=== PATIENT | female | born 1970 | race Caucasian/White ===

== ENCOUNTER 2023-05-12 11:01 | Outpatient (RCR) | payer OTHER, SELFPAY | END 2023-05-12 23:59 | disposition home or self-care (01) | LOC: RPT 11:01 | PROVIDERS: ATTENDING PHYSICIAN Student in an Organized Health Care Education/Training Program; FAMILY PHYSICIAN Physician Assistant Medical | DX: Z47.1 Aftercare following joint replacement surgery (principal); Z96.651 Presence of right artificial knee joint; M17.11 Unilateral primary osteoarthritis, right knee; Z73.6 Limitation of activities due to disability | CPT/HCPCS: 97010; 97110; 97112; 97116; 97162; 97530 ==

== ENCOUNTER 2023-06-08 10:07 | Outpatient (RCR) | payer OTHER, SELFPAY | END 2023-06-08 23:59 | disposition home or self-care (01) | LOC: RPT 10:07 | PROVIDERS: ATTENDING PHYSICIAN Student in an Organized Health Care Education/Training Program; FAMILY PHYSICIAN Physician Assistant Medical | DX: Z47.1 Aftercare following joint replacement surgery (principal); M17.11 Unilateral primary osteoarthritis, right knee; Z73.6 Limitation of activities due to disability; R26.89 Other abnormalities of gait and mobility; Z96.651 Presence of right artificial knee joint | CPT/HCPCS: 97010; 97110; 97116; 97140; 97530 ==

== ENCOUNTER 2023-06-30 15:00 | Outpatient (RCR) | payer OTHER, SELFPAY | END 2023-07-03 07:31 | disposition home or self-care (01) | LOC: RPT 15:00 | PROVIDERS: ATTENDING PHYSICIAN Student in an Organized Health Care Education/Training Program; FAMILY PHYSICIAN Physician Assistant Medical | DX: Z47.1 Aftercare following joint replacement surgery (principal); M17.11 Unilateral primary osteoarthritis, right knee; Z73.6 Limitation of activities due to disability; R26.89 Other abnormalities of gait and mobility; Z96.651 Presence of right artificial knee joint | CPT/HCPCS: 97010; 97110; 97112; 97530 ==

== ENCOUNTER 2024-07-06 15:39 | Inpatient (IN) | payer OTHER, SELFPAY ==
[2024-07-06] VITALS (49 sets, daily range): BP systolic 82–174; BP diastolic 40–93; BMI 31.8; BMI 29.8
--- NOTE | 2024-07-06 12:08 | ED.GENMED ---
History of Present Illness
General
Chief Complaint: Back Pain
Time Seen by Provider: 07/06/24 12:08
History of Present Illness
History of Present Illness:
TIME OF INITIAL ENCOUNTER: 12:30 PM
HPI: The patient has had left-sided back pain over the last couple days however at around 4:00 this morning, the pain dramatically worsened. She is now having shaking chills as well. This morning, she had some urinary hesitancy. She has no
history of kidney stones.
EXAM:
GENERAL: Appears rather uncomfortable with rigors
HEENT: Moist oral mucosa
CARDIOVASCULAR: No murmurs, normal heart rate, regular rhythm, No chest wall tenderness
PULMONARY: No respiratory distress, breath sounds are clear and equal
ABDOMEN: Soft with no peritoneal signs, mild left lower quadrant tenderness, mild left CVA tenderness
NEUROLOGIC: Excellent strength all extremities, no coordination deficits
PSYCHIATRIC: Appropriate mental status, normal insight and judgement
EXTREMITIES: Nontender, no edema, moves all extremities equally
SKIN: No rash, no lesions
NUMBER AND COMPLEXITY OF PROBLEMS ADDRESSED AT THE ENCOUNTER
� Chronic conditions affecting care: NIDDM, high blood pressure
� Acute Exacerbation and/or Progression of Chronic Illness: This is an acute problem
� Differential Diagnosis includes: Ureteral stone, infected stone, pyelonephritis
AMOUNT AND/OR COMPLEXITY OF DATA TO BE REVIEWED AND ANALYZED
� I performed an independent evaluation of and my interpretation is:
EKG:
CT: I personally reviewed CT imaging. There is a lot of inflammatory changes/stranding at the left kidney. There is a large proximal/mid left ureteral stone.
X-rays:
Laboratory Studies: White count is 12.1, hemoglobin normal, chemistries unremarkable however the glucose is 192
Other:
� Review of other/old records: I reviewed records, the patient had been receiving PT for joint replacement surgery in June 2023
� Clinical information was obtained by an independent historian: None needed
� Prescriptions/Medications Considered but not given:
� Further testing considered but not performed:
RISK OF COMPLICATIONS AND/OR MORBIDITY OR MORTALITY OF PATIENT MANAGEMENT
� Social determinants of health affecting care: Lives at home
� Discussion with other providers: I reviewed the images with Dr. Mercer and is planning to take the OR in the next hour.
� Escalation of care including admission/observation vs risk of discharge considered: Initially consider diagnosis of kidney stone but strongly�she was given IV Toradol as well as IV fluids.
ANY OTHER UPDATES:
1:10 PM: Patient now has shaking chills and reports no improvement after Toradol. Will cath for urine as she was unable to void and will try Dilaudid.
2:30 PM: The patient is tachycardic, I attempted to check another oral temperature however the thermometer would not register, she also desatted after Dilaudid was given and is now on nasal cannula oxygen. I have also added blood cultures and
lactic. I am now concerned for sepsis.
2:50 PM: Being admitted by Dr. Jaquez and planning OR within the next hour. I have also added gentamicin at Dr. Mercer's request.
Phy Exam
Physical Exam
Physical Exam:
See HPI
Course
Orders/Labs/Results
Orders:
Orders
07/06/24 12:13
CMP [Comprehensive Metabolic Panel] Urgent
Complete Blood Count/With Diff Urgent
07/06/24 12:22
0.9% Sodium Chloride 1000 ml [Nss] 1,000 ml IV BOLUS
Ketorolac [Toradol] 15 mg IV NOW STA
Ondansetron Injectable [Zofran] 4 mg IV NOW STA
07/06/24 13:12
CT Abd/pel Without Iv Or Oral Urgent
Comment:
Reason For Exam: L flank pain
07/06/24 13:15
HYDROmorphone [Dilaudid] 1 mg IV NOW STA
07/06/24 13:16
Straight cath- Treatment ONCE
07/06/24 13:24
Urinalysis Reflex To Culture Urgent
Date Specimen was Collected: 07/06/24
Time Specimen was Collected: 12:24
Urine Microscopic Reflex Cult Urgent
Urine Culture Urgent
CHAD Source: U
Specimen Description:
Date Specimen was Collected: 07/06/24
Time Specimen was Collected: 12:24
07/06/24 14:22
CefTRIAXone [Rocephin] 1,000 mg IV NOW STA
07/06/24 14:30
Lactic Acid Q4H
Comment: CANCEL 2nd LACTIC ACID IF 1st LACTIC ACID IS LESS THAN 2
Blood Culture Q30M
CHAD Source: Blood/Venous
Specimen Description:
07/06/24 14:42
Gentamicin 100 mg/50 ml [Gentamicin] 100 mg in 50 ml IV NOW
07/06/24 15:00
Blood Culture Q30M
CHAD Source: Blood/Venous
Specimen Description:
07/06/24 18:30
Lactic Acid Q4H
Comment: CANCEL 2nd LACTIC ACID IF 1st LACTIC ACID IS LESS THAN 2
Abnormal Lab Results
07/06/24 07/06/24
12:13 13:24
WBC 12.1 H 10^3/uL
(4.8-10.8)
MCH 26.8 L pg
(27.0-31.0)
MCHC 32.7 L g/dL
(33.0-37.0)
Absolute Neuts (auto) 11.5 H 10^3/uL
(1.4-6.5)
Absolute Lymphs (auto) 0.4 L 10^3/uL
(1.2-3.4)
Neutrophils % 95.4 H %
(42.2-75.2)
Lymphocytes % 3.4 L %
(20.5-51.1)
Monocytes % 0.6 L %
(1.7-9.3)
BUN 24 H mg/dl
(7-17)
Glucose 192 H mg/dl
(70-99)
Urine Ketones 3+ A
(Negative)
Ur Occult Blood Reflex 3+ A
(Negative)
Leukocyte Esterase Rfl 2+ A
(Negative)
Urine RBC 7-10 A /HPF
(0-2)
Urine WBC (Reflex) 40-50 A /HPF
(0-5)
Urine Bacteria (Reflex) Few A
(Negative)
Urine Glucose 4+ A
(Negative)
Urine Albumin (Reflex) 1+ A
(Neg - Trace)
07/06/24 12:13
07/06/24 12:13
Vital Signs
Initial and Last Documented VS:
Initial Vital Signs
Temp Pulse Resp BP Pulse Ox
36.6 C 84 18 114/70 98
07/06/24 11:58 07/06/24 11:58 07/06/24 11:58 07/06/24 11:58 07/06/24 11:58
Last Documented Vital Signs
Temp Pulse Resp BP Pulse Ox
37.2 C 122 34 124/80 97
07/06/24 14:40 07/06/24 14:00 07/06/24 14:00 07/06/24 14:00 07/06/24 13:46
*Critical Care Note
Total Time (30-74mins, 75-104mins- exclusive of procedures): Not Applicable
ED Attending Note
-
Portions of this chart may have been created with voice recognition software.� Occasional wrong word or��sound alike� substitutions may have occurred due to the inherent limitations of voice recognition software.
Discharge Plan
Departure
Patient Disposition: Admit
Date of Disposition: 07/06/24
Time of Disposition: 14:44
Presentation/result/management discussed w/ accepting MD/DO: Hospitalist
Discharge Problem:
Sepsis, Left ureteral calculus
Referrals:
Leslye Lynn PA-C [Family Provider] -
Interventions
Interventions:
*Risk Screen - Suicide Last Done: 07/06/24 11:58
*General Assessment Last Done: 07/06/24 11:58
*Neglect/Abuse Screening Last Done: 07/06/24 11:58
ED- Fall Risk Assessment Last Done: 07/06/24 12:11
*ED COVID-19 Vaccine History Last Done: 07/06/24 12:10
ED-Musculoskeletal Assessment Last Done: 07/06/24 12:11
Discharge Date and Time
Print Language: BOLIVIAN
[2024-07-06 12:22] LABS: % Basophils 0.2 % (0-2); % Eosinophils 0.1 % (0-6); % Immature Granulocytes 0.3 % (0-0.5); % Lymphocytes 3.4 % (20.5-51.1); % Monocytes 0.6 % (1.7-9.3); % Neutrophils 95.4 % (42.2-75.2); Absolute Lymphocytes 0.4 10^3/uL (1.2-3.4); Absolute Monocytes 0.1 10^3/uL (0.1-0.6); Absolute Neutrophils 11.5 10^3/uL (1.4-6.5); Hematocrit 41.9 % (37.0-47.0); Hemoglobin 13.7 g/dL (12.0-16.0); Mean Corp Hgb Conc. 32.7 g/dL (33.0-37.0); Mean Corpuscular Hgb 26.8 pg (27.0-31.0); Mean Corpuscular Volume 81.8 fL (81.0-99.0); Mean Platelet Volume 9.7 fL (7.4-10.4); Nucleated Red Blood Cells % 0 %; Platelet Count 228 10^3/uL (130-400); Red Blood Cell Count 5.12 10^6/uL (4.20-5.40); Red Cell Dist. Width 12.9 % (11.5-14.5); White Blood Cell Count 12.1 10^3/uL (4.8-10.8)
[2024-07-06] MEDS: NSS 1000 IV ×4 (12:26→23:32)
[2024-07-06] MEDS: TORADOL 15 MG IV (12:27)
[2024-07-06] MEDS: ZOFRAN 4 MG IV (12:28)
[2024-07-06 12:47] LABS: ALT (SGPT) 23 U/L (0-35); AST (SGOT) 26 U/L (14-36); Albumin 4.9 g/dl (3.5-5.0); Alkaline Phosphatase 122 U/L (38-126); Blood Urea Nitrogen 24 mg/dl (7-17); Calcium 9.9 mg/dl (8.4-10.2); Carbon Dioxide 23 mmol/L (22-30); Chloride 103 mmol/L (98-107); Estimated Creatinine Clearance 80 ml/min; Glucose 192 mg/dl (70-99); Potassium 4.4 mmol/L (3.5-5.1); Sodium 139 mmol/L (135-145); Total Bilirubin 1.3 mg/dl (0.2-1.3); Total Protein 7.4 g/dl (6.3-8.2); eGFR > 60.00
[2024-07-06] MEDS: DILAUDID 1 MG IV (13:17)
[2024-07-06 13:40] LABS: Urine Albumin 1+ (Neg - Trace); Urine Bilirubin Negative (Negative); Urine Character Clear (Clear); Urine Color Yellow; Urine Glucose 4+ (Negative); Urine Ketone 3+ (Negative); Urine Leukocyte 2+ (Negative); Urine Nitrite Negative (Negative); Urine Occult Blood 3+ (Negative); Urine Specific Gravity 1.015 (<1.030); Urine Urobilinogen Negative (Neg - 1+)
[2024-07-06 14:03] LABS: Urine Mucus Few
[2024-07-06 14:04] LABS: Urine Bacteria Few (Negative); Urine White Cell 40-50 /HPF (0-5)
[2024-07-06] MEDS: GENTAMICIN 50 IV (14:59)
[2024-07-06] MEDS: ROCEPHIN 1000 MG IV (14:59)
--- NOTE | 2024-07-06 15:00 | CHAP ---
Fr. Humphrey Rodgers of [facility] in [place] anointed Frank and gave her the Last [place] at her request. Exact time uncertain.
--- NOTE | 2024-07-06 15:03 | ED.GENMED ---
History of Present Illness
General
Chief Complaint: Back Pain
Time Seen by Provider: 07/06/24 12:08
Course
Orders/Labs/Results
Orders:
Orders
07/06/24 12:13
CMP [Comprehensive Metabolic Panel] Urgent
Complete Blood Count/With Diff Urgent
07/06/24 12:22
0.9% Sodium Chloride 1000 ml [Nss] 1,000 ml IV BOLUS
Ketorolac [Toradol] 15 mg IV NOW STA
Ondansetron Injectable [Zofran] 4 mg IV NOW STA
07/06/24 13:12
CT Abd/pel Without Iv Or Oral Urgent
Comment:
Reason For Exam: L flank pain
07/06/24 13:15
HYDROmorphone [Dilaudid] 1 mg IV NOW STA
07/06/24 13:16
Straight cath- Treatment ONCE
07/06/24 13:24
Urinalysis Reflex To Culture Urgent
Date Specimen was Collected: 07/06/24
Time Specimen was Collected: 12:24
Urine Microscopic Reflex Cult Urgent
Urine Culture Urgent
CHAD Source: U
Specimen Description:
Date Specimen was Collected: 07/06/24
Time Specimen was Collected: 12:24
07/06/24 14:22
CefTRIAXone [Rocephin] 1,000 mg IV NOW STA
07/06/24 14:30
Lactic Acid Q4H
Comment: CANCEL 2nd LACTIC ACID IF 1st LACTIC ACID IS LESS THAN 2
Blood Culture Q30M
CHAD Source: Blood/Venous
Specimen Description:
07/06/24 14:42
Gentamicin 100 mg/50 ml [Gentamicin] 100 mg in 50 ml IV NOW
07/06/24 14:56
Fentanyl Citrate/Pf [Sublimaze] 25 mcg IV PACU-Q5MPRN PRN
Fentanyl Citrate/Pf [Sublimaze] 50 mcg IV PACU-Q5MPRN PRN
Meperidine [Demerol] 12.5 mg IV PACU-Q5MPRN PRN
Ondansetron Injectable [Zofran] 4 mg IV PACU-ONCEPRN PRN
Prochlorperazine [Compazine] 5 mg IV PACU-ONCEPRN PRN
Notify MD As Directed
Notify physician if: for SDS patients with known or suspected sleep obstructive sleep apnea, monitor in the
PACU.
Notify MD for any apneic/desaturation episodes
O2 Therapy [RESP] Urgent
Titrate/Wean O2 to maintain O2 sat greater than (%): 92
Special Instructions: -Provide supplemental oxygen to achieve O2 sat of 92% or greater.
-After 15 min, may wean O2 and discontinue if patient is able to maintain O2 sat of 92%
or greater during recovery period.
If patient is a discharge home, without oxygen therapy, notify anestheiologist if
unable to maintain O2 SAT of 92% or greater on room air for MD clearance.
07/06/24 14:57
Dextrose 50%-Water [Dextrose 50% Syringe] 12.5 grams IV PROCEDURE-PRN PRN
Insulin Aspart [NOVOLOG vial] See Protocol SC PROCEDURE- Q2H PRN PRN
Bedside Glucose Monitoring As Directed
Frequency: Q2H
Additional Instructions:: UNTIL PATIENT LEAVES PROCEDURE AREA
07/06/24 15:00
Blood Culture Q30M
CHAD Source: Blood/Venous
Specimen Description:
Normosol (Mult Electrolytes) [Normosol-R/Plasmalyte-A] 1,000 ml IV PER PROTOCOL
07/06/24 18:30
Lactic Acid Q4H
Comment: CANCEL 2nd LACTIC ACID IF 1st LACTIC ACID IS LESS THAN 2
Abnormal Lab Results
07/06/24 07/06/24
12:13 13:24
WBC 12.1 H 10^3/uL
(4.8-10.8)
MCH 26.8 L pg
(27.0-31.0)
MCHC 32.7 L g/dL
(33.0-37.0)
Absolute Neuts (auto) 11.5 H 10^3/uL
(1.4-6.5)
Absolute Lymphs (auto) 0.4 L 10^3/uL
(1.2-3.4)
Neutrophils % 95.4 H %
(42.2-75.2)
Lymphocytes % 3.4 L %
(20.5-51.1)
Monocytes % 0.6 L %
(1.7-9.3)
BUN 24 H mg/dl
(7-17)
Glucose 192 H mg/dl
(70-99)
Urine Ketones 3+ A
(Negative)
Ur Occult Blood Reflex 3+ A
(Negative)
Leukocyte Esterase Rfl 2+ A
(Negative)
Urine RBC 7-10 A /HPF
(0-2)
Urine WBC (Reflex) 40-50 A /HPF
(0-5)
Urine Bacteria (Reflex) Few A
(Negative)
Urine Glucose 4+ A
(Negative)
Urine Albumin (Reflex) 1+ A
(Neg - Trace)
07/06/24 12:13
07/06/24 12:13
Vital Signs
Initial and Last Documented VS:
Initial Vital Signs
Temp Pulse Resp BP Pulse Ox
36.6 C 84 18 114/70 98
07/06/24 11:58 07/06/24 11:58 07/06/24 11:58 07/06/24 11:58 07/06/24 11:58
Last Documented Vital Signs
Temp Pulse Resp BP Pulse Ox
37.2 C 122 34 124/80 97
07/06/24 14:40 07/06/24 14:00 07/06/24 14:00 07/06/24 14:00 07/06/24 13:46
ED Attending Note
-
Portions of this chart may have been created with voice recognition software.� Occasional wrong word or��sound alike� substitutions may have occurred due to the inherent limitations of voice recognition software.
Discharge Plan
Departure
Patient Disposition: Admit
Date of Disposition: 07/06/24
Time of Disposition: 14:44
Presentation/result/management discussed w/ accepting MD/DO: Hospitalist
Discharge Problem:
Sepsis, Left ureteral calculus
Referrals:
Leslye Lynn PA-C [Family Provider] -
Interventions
Interventions:
*Risk Screen - Suicide Last Done: 07/06/24 11:58
*General Assessment Last Done: 07/06/24 11:58
*Neglect/Abuse Screening Last Done: 07/06/24 11:58
ED- Fall Risk Assessment Last Done: 07/06/24 12:11
*ED COVID-19 Vaccine History Last Done: 07/06/24 12:10
ED-Musculoskeletal Assessment Last Done: 07/06/24 12:11
Discharge Date and Time
Print Language: AFGHAN
--- NOTE | 2024-07-06 15:04 | W.PN.UPDATE ---
Update Note
Progress Note Update
This is an addendum to the H&P written by Faby Mccann on 07/06/2024.� Patient seen and examined independently with [employer].
54-year-old female past medical history of diabetes, hypertension, hypercholesteremia, presenting with left-sided flank pain for the past few days associated with chills, nausea and vomiting.� No urinary symptoms.
Patient tachycardic with leukocytosis.
Labs otherwise unremarkable.� Urinalysis shows 40-50 white cells in the urine.
CT abdomen pelvis shows severe acute obstructive uropathy of the left kidney with 1 cm obstructing calculus in the left mid ureter, severe left perirenal edema/inflammation, moderate urothelial thickening and mild air in the left renal pelvis
consistent with severe acute left pyelonephritis and acute emphysematous pyelitis.
Patient clinically septic.� N.p.o., IV fluids, urine culture, blood cultures.� IV fluids.
Ceftriaxone and gentamicin given.� Continue ceftriaxone.� Urology consulted for urgent OR intervention.� Hold diabetic medications and lisinopril.�
--- NOTE | 2024-07-06 15:10 | HPS.HSE ---
Family Physician
-
Family Physician: Leslye Lynn
Chief Complaint
-
left back and flank pain
History of Present Illness
Patient is a 54-year-old female with past medical history significant for NIDDM, hypertension, and hyperlipidemia who presented to [facility] ED for evaluation of left back and left flank pain. Patient reports she started with back pain on
left side about 4 days ago, pain was tolerable and intermittent. She then was woken from her sleep last night in severe back pain and now radiated to left flank. Patient attempted to deal with pain throughout this morning and was unsuccessful so
came for evaluation. She does associate severe pain today with chills, unknown if had fever, nausea and vomiting. Patient reports increased frequency but no other urinary symptoms. She denies any dizziness, cough, shortness of breath, chest pain,
constipation or diarrhea.
Medical History
Past Medical History
Past Medical History: Reports Other
Additional Past Medical History:
NIDDM
benign hypertension
hyperlipidemia
Past Surgical History: Reports Other
Additional Past Surgical History:
right total knee
Social History
Tobacco: Non-smoker
Alcohol: None
Drug: None
Personal:
Living: With Family
Family History
Family History: Not pertinent
Allergies / Home Medications
Allergies reflects when Allergies were last updated in [employer].
Home Medications with original date entered in [employer]
Allergy/Medication List:
Allergies
Allergy/AdvReac Type Severity Reaction Status Date / Time
codeine Allergy Intermediate Vomiting Verified 07/06/24 11:58
Home Medications
empagliflozin 10 mg tablet (Jardiance) 10 mg PO DAILY 07/06/24
lisinopril 2.5 mg tablet 2.5 mg PO DAILY 07/06/24
metformin 500 mg tablet 1,000 mg PO BID 07/06/24
rosuvastatin 5 mg tablet 5 mg PO QPM 07/06/24
Review of Systems
-
History Source: Patient
Constitutional: Reports Chills
EENT: Reports No Symptoms
Respiratory: Reports No Symptoms
Cardiac: Reports No Symptoms
Abdomen/GI: Reports Abdominal Pain, Nausea and Vomiting
: Reports Frequency
Musculoskeletal: Reports Other (left back and left flank pain )
Skin: Reports No Symptoms
Neurological: Reports No Symptoms
Endocrine: Reports No Symptoms
Hematologic/Lymphatic: Reports No Symptoms
Psych: Reports No Symptoms
Physical Exam
Vital Signs
Vital Signs
Temp Pulse Resp BP Pulse Ox
99.0 F 122 34 124/80 97
07/06/24 14:40 07/06/24 14:00 07/06/24 14:00 07/06/24 14:00 07/06/24 13:46
Physical Exam
General: Well Developed, Well Nourished, No Apparent Distress, Conversant and Pain
HEENT: NormoCephalic, Moist mucous membranes, Atraumatic, [place] Conjunctivae, Nose Appears Normal and Ears Appear Normal
Respiratory: Clear and Non Labored Respirations
Cardiac: S1/S2, Regular Rhythm and Tachycardia; No Murmur, Rub or Gallop
Breast: Deferred by me
GI: Soft, Non Distended, Normal Bowel Sounds and Tender (left flank); No Organomegaly
Rectal: Deferred by Provider
Genito-urinary: Costovertebral angle tend
Musculoskeletal: No Clubbing, No Cyanosis and No Edema
Skin: Warm and IV/Catheter Site; No Rash
Neuro: Awake, Alert, AO x 3 and Nonfocal/grossly intact
Psych: Calm and Intact Judgment/Insight
Laboratory Results
-
07/06/24 12:13
07/06/24 12:13
Laboratory Results
Total Bilirubin 1.3 mg/dl (0.2-1.3) 07/06/24 12:13
AST 26 U/L (14-36) 07/06/24 12:13
ALT 23 U/L (0-35) 07/06/24 12:13
Alkaline Phosphatase 122 U/L (38-126) 07/06/24 12:13
Data Reviewed
-
CT Scan: Report Reviewed by me (Abd/Pelvis: 1. SEVERE ACUTE OBSTRUCTIVE UROPATHY of the LEFT KIDNEY with a 1.0 cm obstructing calculus in the left mid ureter. Severe left renal and perirenal edema/inflammation, moderate urothelial thickening, and
mild air in the left renal pelvis consistent with SEVERE ACUTE LEFT PYELONEPHRITIS )
Lab Data: Labs Reviewed by me (WBC 12.1)
Impression/Plan
-
IMPRESSION/PLAN:
#sepsis 2/2 Left ureteral calculus
WBC 12.1
UA: indicating UTI
Abd/Pelvis CT: 1. SEVERE ACUTE OBSTRUCTIVE UROPATHY of the LEFT KIDNEY with a 1.0 cm obstructing calculus in the left mid ureter. Severe left renal and perirenal edema/inflammation, moderate urothelial thickening, and
mild air in the left renal pelvis consistent with SEVERE ACUTE LEFT PYELONEPHRITIS and ACUTE EMPHYSEMATOUS PYELITIS.
2. Severe diffuse hepatic steatosis.
3. Mild hepatosplenomegaly.
4. Small hiatal hernia.
5. Mild diverticulosis in the sigmoid colon.
6. Grade 1 anterolisthesis of L4 on L5 secondary to severe facet joint arthrosis.
7. Severe asymmetric osteoarthritis in the left hip.
- Admit to IMU
- IV Rocephin
- supportive care (pain regimen, antiemetics, IVF, etc.)
- Consult Urology
- NPO - plan for OR
#NIDDM
- hold metformin and Jardiance
- AccuCheck AC & HS
- SSI
#benign hypertension
- hold lisinopril
#hyperlipidemia
- continue rosuvastatin
Code status: Full code
DVT prophylaxis: SCDs
--- NOTE | 2024-07-06 15:17 | CON.MD ---
Consultation - Medical
-
see dictated note
pt with no prior gu hx
presents with left flank pain and dysuria
has elevated wbc/tachy- + ua and ct with obstructing left ureteral stone and sig perinephric inflammation on left
spoke to pt and by phone
notified OR
rocephin and gent
for ureteral stent maury- then monitored bed
[2024-07-06 15:41] LABS: Lactic Acid 2.1 mmol/L (0.7-2.0)
--- NOTE | 2024-07-06 16:24 | W.IMMPOSTOP ---
Surgical Immed Post Op Note
-
Primary Surgeon:
te
Assisting Surgeon:
Pre-op Diagnosis:
left ureteral stone/uti/sepsis
Post-op Diagnosis:
same
Procedure Performed:
cysto/left ureteral stent
Anesthesia Type:
gen
Specimen / Cultures:
ucx
Estimated Blood Loss:
1cc
Complications:
none
Operative Findings:
stent placed
pus draining from kidney
to pacu- then IMU
[2024-07-06 16:28] LABS: Glucose - Point of Care 183 mg/dl (70-99)
[2024-07-06] MEDS: NOVOLOG vial 1 UNITS SC (16:32)
[2024-07-06 16:33] LABS: Urine Albumin 2+ (Neg - Trace); Urine Bilirubin Negative (Negative); Urine Character Clear (Clear); Urine Color Yellow; Urine Glucose 4+ (Negative); Urine Ketone 1+ (Negative); Urine Leukocyte 1+ (Negative); Urine Nitrite Negative (Negative); Urine Occult Blood 1+ (Negative); Urine Specific Gravity 1.015 (<1.030); Urine Urobilinogen Negative (Neg - 1+)
[2024-07-06 16:43] LABS: Urine Bacteria Few (Negative)
[2024-07-06] MEDS: NORMOSOL-R/PLASMALYTE-A 500 IV (17:00)
[2024-07-06] MEDS: NORMOSOL-R/PLASMALYTE-A 1000 IV (17:00)
[2024-07-06] MEDS: NEO-SYNEPHRINE 250 IV (17:30)
--- NOTE | 2024-07-06 18:46 | PTCARENOTE ---
Patient arrived from PACU at change of shift, s/p stent placement. Patient arrived with Phenylephrine infusing along with NSS due to hypotension in PACU. BP upon arrival is 94/64, sinus tach at 114. Patient oriented to room, placed on cardiac
monitor. Report given to Huyen HALLMAN , admission endorsed.
--- NOTE | 2024-07-06 18:49 | SUR.PHASEI ---
patient septic in pacu, with low BP - Dr Gaffney at bedside - IV fluids wide open and intermittent bolus of scott by REPAIR DEPARTMENT SUPERVISOR, continue fluids wide, arousable no pain. Feels ' terrible' Initial temp 102.7 [address] to time and place, tachycardia.
Continued IV bolu and Dr Mercer and Dr Jaquez updated. Scott started at low dose at 1733 as bolus fluid finished, continuous IV at 150/hr. Family updated. on discharge from pacu - scott at 40mcg/min, NS at 150/hr. tachycardia persists. BP
improving. lethargic but awake and alert. Family to visit briefly. Hand off at bedside. Pt moved to physical IMU bed.
[2024-07-06] MEDS: NOVOLOG FLEXPEN-LOW RESISTANCE SC (19:36)
[2024-07-06] MEDS: NORMOSOL-R/PLASMALYTE-A IV (19:37)
[2024-07-06] MEDS: CRESTOR 5 MG PO (20:37)
[2024-07-06] MEDS: TORADOL 10 MG IV (20:46)
[2024-07-06 20:55] LABS: Lactic Acid 4.1 mmol/L (0.7-2.0)
[2024-07-06 21:31] LABS: Lactic Acid 4.3 mmol/L (0.7-2.0)
[2024-07-06 21:40] LABS: Glucose - Point of Care 205 mg/dl (70-99)
--- NOTE | 2024-07-06 23:44 | PTCARENOTE ---
Rec'd pt as new admission at change of shift. Scott gtt infusing, new order obtained from PHIL Hull as previous order had been completed. Pt continues with tachycardia, BP remains under 90 systolic, but MAPs over 65. Pt denies symptoms of hypotension
at this time. C/o mild to moderate pain in L abdomen, treated with toradol per JUL. Lactic acid drawn as it had been overdue, resulted 4.1. Redrawn to verify, 4.3. PHIL Hull notified via TT. IVF remain at 150ml/hr per MD orders. Will continue to
titrate scott per protocol. Rios remains intact. 96% on 2L O2. Call arce within reach. Care ongoing.
[2024-07-07] VITALS (50 sets, daily range): BP systolic 79–125; BP diastolic 59–83
[2024-07-07] MEDS: TORADOL 10 MG IV ×4 (02:58→22:28)
[2024-07-07] MEDS: NSS 1000 IV ×2 (05:24→16:04)
[2024-07-07 06:05] LABS: Lactic Acid 1.7 mmol/L (0.7-2.0)
[2024-07-07 06:06] LABS: Hematocrit 32.5 % (37.0-47.0); Hemoglobin 10.9 g/dL (12.0-16.0); Mean Corp Hgb Conc. 33.5 g/dL (33.0-37.0); Mean Corpuscular Volume 80.6 fL (81.0-99.0); Mean Platelet Volume 10.7 fL (7.4-10.4); Platelet Count 123 10^3/uL (130-400); Red Blood Cell Count 4.03 10^6/uL (4.20-5.40); Red Cell Dist. Width 13.3 % (11.5-14.5); White Blood Cell Count 18.9 10^3/uL (4.8-10.8)
[2024-07-07 06:19] LABS: Blood Urea Nitrogen 30 mg/dl (7-17); Calcium 7.7 mg/dl (8.4-10.2); Carbon Dioxide 16 mmol/L (22-30); Chloride 110 mmol/L (98-107); Estimated Creatinine Clearance 69 ml/min; Glucose 152 mg/dl (70-99); Potassium 3.6 mmol/L (3.5-5.1); Sodium 136 mmol/L (135-145); eGFR > 60.00
[2024-07-07] MEDS: TYLENOL 650 MG PO ×3 (07:39→20:56)
[2024-07-07] MEDS: NOVOLOG FLEXPEN-LOW RESISTANCE SC ×2 (07:42→16:44)
[2024-07-07 07:53] LABS: Glucose - Point of Care 135 mg/dl (70-99)
--- NOTE | 2024-07-07 08:05 | W.PN.URO.CBU ---
Today's Communication / Plan
-
continue soriano and stent
IMU care
Assessment / Plan
-
stone
UTI
gram neg sepsis
s/p stent and soriano
continue medical support/antibx
await ucx
Diagnosis
-
Date of Service: July 07, 2024
-
Patient Diagnosis:
stone
UTI and sepsis
Post Op Day:
left ureteral stent 07/06
Subjective
-
pt with MORRIS/back pain- not feeling well- but expected given clinical scenario
soriano in- urine clear
blood cx + for gram neg rods
Objective
-
Vital Signs
Temp Pulse Resp BP Pulse Ox
97.7 F 91 28 94/66 96
07/07/24 03:00 07/07/24 07:30 07/07/24 07:30 07/07/24 07:30 07/07/24 07:53
Intake and Output
07/06/24 07/07/24 07/08/24
06:59 06:59 06:59
Intake Total 3058 / 3058
Output Total 900 / 900
Balance 2158 / 2158
Intake:
Oral fluids 100 / 100
IV fluids (Total) 2958 / 2958
stephanie gtt 8 / 8
normosol 1000 / 1000
ns 150 / 150
Output:
Urine, Soriano 275 / 275
Urine, Voided 625 / 625
Laboratory Results
07/07/24 05:43
07/07/24 05:43
Review of Systems
-
Constitutional: Fatigue
Respiratory: No Symptoms
Cardiac: No Symptoms
Abdomen/GI: Abdominal Pain
: Urgency (soriano)
Physical Exam
-
General - ill appearing, NAD
Abdomen - soft, some tenderness- no rebound
Genitalia - soriano place
--- NOTE | 2024-07-07 08:17 | W.PN.HOSP.TC ---
Addendum entered and electronically signed by Augustina Shepard MD 07/07/24 11:07:
BP 90/60 - will put Levophed on board if needed
Original Note:
Today's Communication/Plan
-
broaden antibiotics
lower IVF rate - if drinking well can stop later
appreciate Urology
Assessment / Plan
Assessment / Plan
Patient is a 54-year-old female with past medical history significant for NIDDM, hypertension, and hyperlipidemia who presented to [facility] ED for evaluation of left back and left flank pain found to have 1.0cm obstructing calculus
resulting in obstructive uropathy; pyelonephritis and acute emphysematous pyelitis s/p urgent placement ureteral stent.
Abdomen/Pelvis CT
IMPRESSION:
1. SEVERE ACUTE OBSTRUCTIVE UROPATHY of the LEFT KIDNEY with a 1.0 cm obstructing calculus in the left mid ureter. Severe left renal and perirenal edema/inflammation, moderate urothelial thickening, and mild air in the left renal pelvis consistent
with SEVERE ACUTE LEFT PYELONEPHRITIS and ACUTE EMPHYSEMATOUS PYELITIS.
2. Severe diffuse hepatic steatosis.
3. Mild hepatosplenomegaly.
4. Small hiatal hernia.
5. Mild diverticulosis in the sigmoid colon.
6. Grade 1 anterolisthesis of L4 on L5 secondary to severe facet joint arthrosis.
7. Severe asymmetric osteoarthritis in the left hip.
Sepsis 2/2 Obstructive Uropathy with left ureteral calculus and Pyelonephritis
Gram Negative Bacilli Bacteremia
Septic Shock
-s/p urgent cysto and left ureteral stent placement by Dr. Mercer
-patient required Phenylephrine post-op; quickly came off and BP/MAP stable
-s/p IV Ceftriaxone - will broaden antibiotics to IV Zosyn today while awaiting final cultures
-continue Rios catheter
-CLD per Urology
-IVF - lower rate
NIDDM
-patient is on Jardiance, Metformin at home, continue to hold
-ISS
HLD
-TAX ASSOCIATE ATTORNEY statin
Essential HTN
-hold TAX ASSOCIATE ATTORNEY Lisinopril
Anemia
-drop in Hg post IVF, suspect dilutional
-add on iron studies
-repeat at noon
non-gap metabolic Acidosis
Hyperchloremic Acidosis
-lower rate IVF
DVT PPx SCD
FULL CODE
Anticipated Discharge: > 48 hours
Subjective/Interval History
-
Date of Service: July 07, 2024
has mild headache
pain from stent
Objective Data
-
Labs:
Laboratory Results
07/07/24
05:43
WBC 18.9 H
Hgb 10.9 L D
Hct 32.5 L
Plt Count 123 L D
Sodium 136
Potassium 3.6
Chloride 110 H
Carbon Dioxide 16 L
BUN 30 H
Creatinine 1.0
Glucose 152 H
Calcium 7.7 L D
Vital Signs:
Vital Signs
Temp Pulse Resp BP Pulse Ox
97.7 F 91 28 94/66 96
07/07/24 03:00 07/07/24 07:30 07/07/24 07:30 07/07/24 07:30 07/07/24 07:53
I&O
07/06/24 07/07/24 07/08/24
06:59 06:59 06:59
Intake Total 3058 / 3058
Output Total 900 / 900
Balance 2158 / 2158
Review of Systems
-
History Source: Patient
All other systems: Reviewed and negative
Physical Exam
-
General: No Apparent Distress
HEENT: PERRLA
Respiratory: Clear to Auscultation; Negative Wheezes
Cardiac: Regular Rhythm and S1/S2
GI: Soft and Nontender
Genito-urinary: Rios
Musculoskeletal: No Edema
Skin: Warm and Dry; Negative Rash
Neuro: AO x 3
Psych: Calm
Data Reviewed
-
Diagnostic Radiology: Report Reviewed by me
Labs: Labs Reviewed by me
[2024-07-07 08:54] LABS: Iron < 20 ug/dl (37-170)
[2024-07-07 09:01] LABS: Total Iron Binding Capacity 236 ug/dl (265-497)
[2024-07-07 09:09] LABS: Glycohemoglobin (HgbA1c) 7.3 % (4.0-5.6)
[2024-07-07] MEDS: ZOSYN 50 IV ×3 (09:11→22:29)
[2024-07-07 09:37] LABS: Ferritin 69.7 ng/ml (11.1-264.0)
[2024-07-07] MEDS: LEVOPHED 250 IV (11:24)
[2024-07-07 12:17] LABS: Glucose - Point of Care 161 mg/dl (70-99)
[2024-07-07 12:33] LABS: Hemoglobin 10.4 g/dL (12.0-16.0)
[2024-07-07] MEDS: NOVOLOG FLEXPEN-LOW RESISTANCE 1 UNITS SC (12:49)
--- NOTE | 2024-07-07 13:28 | CM ---
Patient seen at bedside.
IA completed
Dx: Left ureteral calculus, sepsis
Patient lives with and children in a 2 story home, 2 steps to enter
PLOF: Independent, works, drives
Denies DME
[facility] in 2022 TKA, outpatient PT
PCP: Ailyn Lynn
Pharmacy: [address], [place]
PLAN: home, anticipate no needs
--- NOTE | 2024-07-07 16:32 | PTCARENOTE ---
Patient AOx3. Patient has flat affect. Patient on RA. Levo gtt initiated and weaned off per order for SBP >90. IVF running per order. NSR on monitor. 18 welsh soriano draining yellow urine with sediment. Patient tolerating clear liquid diet. OOB to
chair assist x1. Patient c/o headache. Medication provided per MAR. Patients family at bedside throughout shift. Call arce within reach, bed in lowest position, and bed of wheels locked.
[2024-07-07 16:40] LABS: Glucose - Point of Care 139 mg/dl (70-99)
[2024-07-07] MEDS: CRESTOR 5 MG PO (17:01)
[2024-07-07 22:36] LABS: Glucose - Point of Care 130 mg/dl (70-99)
[2024-07-08] VITALS (21 sets, daily range): BP systolic 104–150; BP diastolic 62–96
[2024-07-08] MEDS: TYLENOL 650 MG PO ×2 (02:49→16:25)
[2024-07-08] MEDS: ZOSYN 50 IV ×2 (04:35→10:20)
[2024-07-08 05:18] LABS: Blood Urea Nitrogen 28 mg/dl (7-17); Calcium 8.6 mg/dl (8.4-10.2); Carbon Dioxide 20 mmol/L (22-30); Chloride 110 mmol/L (98-107); Estimated Creatinine Clearance 63 ml/min; Glucose 115 mg/dl (70-99); Magnesium 1.7 mg/dl (1.6-2.3); Potassium 3.3 mmol/L (3.5-5.1); Sodium 137 mmol/L (135-145); eGFR > 60.00
--- NOTE | 2024-07-08 06:07 | W.PN.URO.CBU ---
Today's Communication / Plan
-
continue supportive medical care
Assessment / Plan
-
stone
UTI
gram neg sepsis
s/p stent and soriano
continue medical support/antibx
await ucx final report
advance diet and activity
soriano out today if patient UOOB
Diagnosis
-
Date of Service: July 08, 2024
-
Patient Diagnosis:
stone
UTI and sepsis
Post Op Day:
left ureteral stent 07/06
Subjective
-
pt stable in IMU
still feels very weak and fatigued
off pressors
urine clear
afebrile
cx's + for ecoli
Objective
-
Vital Signs
Temp Pulse Resp BP Pulse Ox
97.8 F 94 19 113/73 99
07/08/24 04:46 07/08/24 04:00 07/08/24 04:00 07/08/24 04:00 07/08/24 04:07
Intake and Output
07/06/24 07/07/24 07/08/24
06:59 06:59 06:59
Intake Total 3058 / 3058 2330 / 2330
Output Total 900 / 900 1800 / 1800
Balance 2158 / 2158 530 / 530
Intake:
Oral fluids 100 / 100 1440 / 1440
IV fluids (Total) 2958 / 2958 840 / 840
stephanie gtt 8 / 8
normosol 1000 / 1000
ns 150 / 150
IV piggybacks 50 / 50
Output:
Urine, Soriano 275 / 275 1800 / 1800
Urine, Voided 625 / 625
Laboratory Results
07/08/24 04:34
Review of Systems
-
Constitutional: Fatigue
Respiratory: No Symptoms
Cardiac: No Symptoms
Abdomen/GI: Abdominal Pain (improved)
Musculoskeletal: No Symptoms
Skin: No Symptoms
Neurological: Headache and Weakness
Physical Exam
-
General - no acute distress
Abdomen - soft, non-tender
Genitalia - soriano in place
[2024-07-08 06:09] LABS: Hematocrit 30.6 % (37.0-47.0); Hemoglobin 10.3 g/dL (12.0-16.0); Mean Corp Hgb Conc. 33.7 g/dL (33.0-37.0); Mean Corpuscular Hgb 27.6 pg (27.0-31.0); Mean Platelet Volume 11.1 fL (7.4-10.4); Platelet Count 116 10^3/uL (130-400); Red Blood Cell Count 3.73 10^6/uL (4.20-5.40); Red Cell Dist. Width 13.4 % (11.5-14.5); White Blood Cell Count 15.1 10^3/uL (4.8-10.8)
--- NOTE | 2024-07-08 07:40 | W.PN.HOSP.TC ---
Addendum entered and electronically signed by Ronnie Najera MD 07/08/24 16:19:
hold Lovenox
Rpt Hb
Black colored vomitus per nursing.
Addendum entered and electronically signed by Ronnie Najera MD 07/08/24 16:16:
I saw and evaluated the patient. I reviewed the resident�s note and agree with findings and plan as documented in the resident�s note except for changes in my documentation
Addendum entered and electronically signed by Ronnie Najera MD 07/08/24 16:00:
Seen earlier. Late documentation.
54-year-old female who presented to [facility] ED for evaluation of left back and left flank pain found to have 1.0cm obstructing calculus resulting in obstructive uropathy; pyelonephritis and acute emphysematous pyelitis s/p urgent
placement ureteral stent.
CT abdomen and pelvis-severe acute obstructive uropathy of the left kidney with 1 cm obstructing calculus in the left mid ureter. Severe left renal and perirenal edema/inflammation, moderate urothelial thickening and mild air in the left renal
pelvis consistent with severe acute left pyelonephritis and acute emphysematous pyelitis.
Severe diffuse hepatic steatosis, mild hepatosplenomegaly, small hiatal hernia, mild diverticulosis of the sigmoid colon, grade 1 anterolisthesis L4-L5, severe asymmetric osteoarthritis of the left hip
CVS: S1-S2 normal
Chest: CTA B/L
Abdomen: Soft, NT / Bowel sounds present
Extremities: No edema, normal pulses
DOUBLE CUTTER: Non focal exam
# Sepsis secondary to obstructive uropathy with left ureteral calculus and pyelonephritis / acute emphysematous pyelitis
E. coli bacteremia with septic shock
Status post urgent cystoscopy and left ureteral stent placement by Dr. Mercer
Wean pressors as tolerated
Lactic acidosis resolved
Continue with IV ceftriaxone
ID evaluation appreciated
On Rios catheter
IV fluids
White count coming down
# Hypokalemia-replace
# Acute kidney injury-IV fluids to be continued. Hold Toradol.
# Diabetes-hemoglobin A1c 7.3
Was on Jardiance and metformin at home-on hold
Accu-Cheks and sliding scale coverage
# Hypertension-hold lisinopril
# Hyperlipidemia-continue statin
# Anemia-severe iron deficiency-replace iron
# Thrombocytopenia
# Hyperchloremic metabolic acidosis
# DVT prophylaxis-Lovenox added
# Full code
Discussed with at bedside
Original Note:
Today's Communication/Plan
-
Narrow antibiotics to ceftriaxone
Gentle IVF
Monitor and replete electrolytes
Follow urine and blood cultures
Assessment / Plan
Assessment / Plan
Patient is a 54-year-old female with past medical history significant for NIDDM, hypertension, and hyperlipidemia who presented to [facility] ED for evaluation of left back and left flank pain found to have 1.0cm obstructing calculus
resulting in obstructive uropathy; pyelonephritis and acute emphysematous pyelitis s/p urgent placement ureteral stent.
Assessment/plan:
#Septic shock 2/2 complicated UTI with bacteremia
-From left ureteral obstructive uropathy with calculus and pyelonephritis.
-S/p uneventful cystoscopy with left ureteral stent 07/06 (Dr. Mercer).
-Narrow ABX to ceftriaxone per ID.
-Blood cultures x 2 and urine culture with E. coli, follow for sensitivity.
-Follow daily blood cultures x 2 until negative.
-Follow fever curve.
-Started Levophed for hypotension.
-Continue Rios catheter.
-Continue IV fluid.
-ID appreciated.
-Appreciate urology.
-Follow daily weights, I's and O's, BP.
#Hypokalemia
-Monitor and replete.
#Lactic acidosis
-Improved.
#Leukocytosis
-Improving on IV antibiotics.
-Monitor and follow fever curve.
#NIDDM
-Hold home Jardiance, metformin.
-Low ISS with Accu-Cheks.
#HLD
-Continue rosuvastatin.
#Essential HTN
-Hold lisinopril.
#Iron deficiency anemia
-Start iron supplementation.
-Follow CBC.
#Non-anion gap metabolic acidosis
-Hyperchloremic.
-Suspect due to lactic acidosis has resolved vs acute infection.
-Follow CBC.
DVT PPx-SCD
CODE STATUS: FULL CODE
Data:
Abdomen/Pelvis CT
IMPRESSION:
1. SEVERE ACUTE OBSTRUCTIVE UROPATHY of the LEFT KIDNEY with a 1.0 cm obstructing calculus in the left mid ureter. Severe left renal and perirenal edema/inflammation, moderate urothelial thickening, and mild air in the left renal pelvis consistent
with SEVERE ACUTE LEFT PYELONEPHRITIS and ACUTE EMPHYSEMATOUS PYELITIS.
2. Severe diffuse hepatic steatosis.
3. Mild hepatosplenomegaly.
4. Small hiatal hernia.
5. Mild diverticulosis in the sigmoid colon.
6. Grade 1 anterolisthesis of L4 on L5 secondary to severe facet joint arthrosis.
7. Severe asymmetric osteoarthritis in the left hip.
Anticipated Discharge: > 48 hours
Subjective/Interval History
-
Date of Service: July 08, 2024
Patient seen and examined. Reports fatigue, body aches and pains. Also reports some flank pains.
Denies chest pain and shortness of breath. Denies fever or chills.
Objective Data
-
Labs:
Laboratory Results
07/08/24
04:34
WBC 15.1 H
Hgb 10.3 L
Hct 30.6 L
Plt Count 116 L
Sodium 137
Potassium 3.3 L
Chloride 110 H
Carbon Dioxide 20 L
BUN 28 H
Creatinine 1.1 H
Glucose 115 H
Calcium 8.6
Vital Signs:
Vital Signs
Temp Pulse Resp BP Pulse Ox
98 F 93 20 110/72 99
07/08/24 07:15 07/08/24 06:00 07/08/24 06:00 07/08/24 06:00 07/08/24 04:07
I&O
07/07/24 07/08/24 07/09/24
06:59 06:59 06:59
Intake Total 3058 / 3058 2330 / 2330
Output Total 900 / 900 1800 / 1800
Balance 2158 / 2158 530 / 530
Review of Systems
-
History Source: Patient
All other systems: Not reviewed unless documented
Respiratory: Reports No Symptoms
Cardiac: Reports No Symptoms
Abdomen/GI: Reports Abdominal Pain; Denies Nausea or Vomiting
Genitourinary: Reports Flank Pain; Denies Dysuria or Frequency
Skin: Reports No Symptoms
Neuro: Reports No Symptoms
Physical Exam
-
General: No Apparent Distress and Comfortable
HEENT: PERRLA
Respiratory: Clear to Auscultation; Negative Wheezes
Cardiac: Regular Rhythm and S1/S2
GI: Soft and Nontender
Genito-urinary: Rios
Musculoskeletal: No Cyanosis and No Edema; Negative Clubbing
Skin: Warm and Dry; Negative Rash
Neuro: Awake and AO x 3
Psych: Calm
Data Reviewed
-
Diagnostic Radiology: Report Reviewed by me
Labs: Labs Reviewed by me and Discussed with Physician
Old Records: Reviewed
[2024-07-08 08:12] LABS: Band Neutrophils 8 % (0-3); Lymphocytes 6 % (20-51); Monocytes 1 % (2-9); Platelets Checked Yes; Segmented Neutrophils 85 % (42-75)
[2024-07-08 08:13] LABS: Normal RBC Morphology Yes; Total Cells Counted 100
[2024-07-08] MEDS: UROCIT-K 10 MEQ PO (08:15)
[2024-07-08] MEDS: Pyridium 100 MG PO ×3 (08:15→23:23)
[2024-07-08] MEDS: NSS 1000 IV ×2 (08:16→20:47)
[2024-07-08] MEDS: NOVOLOG FLEXPEN-LOW RESISTANCE SC ×3 (08:21→17:21)
[2024-07-08] MEDS: TORADOL 10 MG IV (08:24)
[2024-07-08 08:31] LABS: Glucose - Point of Care 112 mg/dl (70-99)
--- NOTE | 2024-07-08 09:43 | W.PN.UPDATE ---
Addendum entered and electronically signed by Ronnie Najera MD 07/09/24 13:59:
THis note is for 07/09/24
Original Note:
Update Note
Progress Note Update
Seen earlier. Late documentation.
I saw and evaluated the patient. I reviewed the resident�s note and agree with findings and plan as documented in the resident�s note except for changes in documentation.
54-year-old female who presented to [facility] ED for evaluation of left back and left flank pain found to have 1.0cm obstructing calculus resulting in obstructive uropathy; pyelonephritis and acute emphysematous pyelitis s/p urgent
placement ureteral stent.
CT abdomen and pelvis-severe acute obstructive uropathy of the left kidney with 1 cm obstructing calculus in the left mid ureter. Severe left renal and perirenal edema/inflammation, moderate urothelial thickening and mild air in the left renal
pelvis consistent with severe acute left pyelonephritis and acute emphysematous pyelitis.
Severe diffuse hepatic steatosis, mild hepatosplenomegaly, small hiatal hernia, mild diverticulosis of the sigmoid colon, grade 1 anterolisthesis L4-L5, severe asymmetric osteoarthritis of the left hip
CVS: S1-S2 normal
Chest: CTA B/L
Abdomen: mild diffuse epigastric discomfort. Bowel sounds present
Extremities: No edema, normal pulses
SENIOR UI DEVELOPER: Non focal exam
# Coffee-ground emesis with loose stools
Status post EGD 07/09/2024-normal esophagus, small hiatal hernia, oozing gastric ulcer with visible vessel treated with cautery, normal duodenum
Continue PPI
CLD today
GI eval appreciated.
# Sepsis secondary to obstructive uropathy with left ureteral calculus and pyelonephritis / acute emphysematous pyelitis
E. coli bacteremia with septic shock
Status post urgent cystoscopy and left ureteral stent placement by Dr. Mercer
Off pressors
Lactic acidosis resolved
Continue with IV ceftriaxone
Rios catheter out
White count coming down
# Hypokalemia-replaced
# Acute kidney injury-Resolved
# Diabetes-hemoglobin A1c 7.3
Was on Jardiance and metformin at home-on hold
Accu-Cheks and sliding scale coverage
# Hypertension-hold lisinopril
# Hyperlipidemia-continue statin
# Anemia-severe iron deficiency and also secondary to acute GI blood loss-replace iron IV
# Thrombocytopenia-Resolved
# Hyperchloremic metabolic acidosis
# DVT prophylaxis-Lovenox added
# Full code
Discussed with at bedside
D/W GI
D/W RN
--- NOTE | 2024-07-08 10:29 | CON.ID ---
Consultation
-
Date/Time Consultation Requested: 07/08/2024 0949
Date/Time Consultation Performed: 07/08/2024 1020
Requesting Provider: Dr. Najera
Performing Provider: Dr. Kimball
Reason for Consultation: Bacteremia
Chief Complaint / Past History
History of Present Illness
Rachel Henley is a 54-year-old female being evaluated at the request of Dr. Najera in regards to bacteremia. History is obtained from chart review, along with patient interview.
The patient has a significant past medical history of diabetes mellitus, along with HTN who presented to [facility] ER on 07/06/2024 after the development of several days of left-sided back discomfort. She reports that she has had
intermittent back pain for quite some time, ever since she underwent right knee replacement which 'straighten out her spine', and for several days she had been having that type of pain. On the day of presentation to the ER she noted that the pain
dramatically worsened and admitted to shaking chills, and urinary hesitancy. Additionally, she notes that she had nausea, along with several episodes of vomiting. ER workup revealed a leukocytosis. CT imaging of the abdomen and pelvis revealed
obstructive uropathy, and the patient was taken to the OR for stent placement. Cultures obtained at the time of admission are now positive for E. coli, and Infectious Diseases is asked to comment on further antimicrobial management.
Currently she feels quite fatigued, with generalized bodyaches and pains. She notes her back pain is become some abdominal pain. She denies any dysuria. She continues to have some flank pain. She has no prior history of nephrolithiasis. No
recent history of dysuria.
Past History
Additional Past Medical History:
NIDDM
HTN
Dyslipidemia
Additional Past Surgical History:
Right TKR
D&C
D&E
Allergy History:
codeine Allergy (Intermediate, Verified 07/06/24 11:58)
Vomiting
Medications Reviewed: Yes
Current Antibiotics:
Zosyn 3.375 g IV every 6 hours
Social History
Tobacco: Non-Smoker
Alcohol: None
Drug: None
Personal:
Living: With Family
Employment: Employed
Family History
Family History: Not Pertinent
Review of Systems
Vital Signs
Temp Pulse Resp BP Pulse Ox
98 F 71 23 110/81 96
07/08/24 07:15 07/08/24 08:00 07/08/24 08:00 07/08/24 08:00 07/08/24 08:00
Physical Exam
Physical Exam
Constitutional: No Acute Distress, Comfortable and Non-toxic
Eyes: No Conjunctival Hemorrhage and Sclera Anicteric
Oral: No Thrush and No Ulcers
Cardiovascular: Regular Rate and S1/S2; Negative Murmur or Rub
Pulmonary: Clear and Symmetric; Negative Wheezes, Rales or Rhonchi
Gastrointestinal: Soft, Tender, Non Distended and Normal Bowel Sounds
Genito-Urinary: CVA Tenderness (Left-sided)
Extremities: Negative Edema, Cyanosis or Erythema
Skin: Warm and Dry; Negative Rash or Jaundice
Neurological: Awake and Alert
Psychological: Calm
.
Lab / Diagnostic Study Results
07/08/24 04:34
07/08/24 04:34
Abs Immat Gran (auto) 0.0 10^3/uL (0-0.05) 07/06/24 12:13
Absolute Neuts (auto) 11.5 10^3/uL (1.4-6.5) H 07/06/24 12:13
Absolute Lymphs (auto) 0.4 10^3/uL (1.2-3.4) L 07/06/24 12:13
Absolute Monos (auto) 0.1 10^3/uL (0.1-0.6) 07/06/24 12:13
Absolute Basos (auto) 0.0 10^3/uL (0-0.2) 07/06/24 12:13
Total Counted 100 07/08/24 04:34
Immature Gran % 0.3 % (0-0.5) 07/06/24 12:13
Neutrophils % 95.4 % (42.2-75.2) H 07/06/24 12:13
Lymphocytes % 3.4 % (20.5-51.1) L 07/06/24 12:13
Monocytes % 0.6 % (1.7-9.3) L 07/06/24 12:13
Eosinophils % 0.1 % (0-6) 07/06/24 12:13
Basophils % 0.2 % (0-2) 07/06/24 12:13
Abs Neuts (Manual) 14.0 10^3/uL (1.4-6.5) H 07/08/24 04:34
Segmented Neutrophils 85 % (42-75) H 07/08/24 04:34
Band Neutrophils 8 % (0-3) H 07/08/24 04:34
Lymphocytes (Manual) 6 % (20-51) L 07/08/24 04:34
Lactic Acid 1.7 mmol/L (0.7-2.0) 07/07/24 05:43
Urine WBC 11-15 /HPF (0-5) A 07/06/24 16:20
Ur Squamous Epith Cells 6-10 /LPF (Few) 07/06/24 16:20
Microbiology Results
Micro:
07/06/24 13:24 Urine Culture - Final
Urine Escherichia coli
07/08/24 04:34 Blood Culture - Pending
Blood/Venous
07/07/24 12:18 Blood Culture - Pending
Blood/Venous
07/06/24 14:55 Blood Culture - Preliminary
Blood/Venous Escherichia coli
Gram Stain - Preliminary
07/06/24 14:55 Blood Culture - Preliminary
Blood/Venous Positive culture in progress
Gram Stain - Preliminary
Urine Culture Final 07/06/24
CC: Greater than 100,000 CFU/ML Escherichia coli
Organism 1 Escherichia coli
1. Escherichia coli
M.I.C. RX
--------- ---
Amoxicillin/Potas. Clavulanate >16/8 R
Ampicillin >16 R
Ampicillin/Sulbactam >16/8 R
Aztreonam <=4 S
Cefazolin >16 R
Cefepime <=2 S
Ceftazidime <=1 S
Ceftriaxone <=1 S
Ertapenem <=0.5 S
Ciprofloxacin <=0.25 S
Gentamicin <=2 S
Meropenem <=1 S
Nitrofurantoin-Urine Only <=32 S
Piperacillin/Tazobactam <=8 S
Tetracycline <=4 S
Tobramycin <=2 S
Trimethoprim/Sulfamethoxazole <=2/38 S
Imaging:
07/06/2024 CT abdomen/pelvis without contrast severe acute obstructive uropathy of the left kidney with a 1 cm obstructing calculus in the left mid ureter. Severe left renal and perirenal edema/inflammation, with moderate urothelial thickening and
mild air in the left renal pelvis consistent with acute left pyelonephritis and emphysematous pyelitis. Also noted is severe diffuse hepatic steatosis with mild hepatosplenomegaly and a small hiatal hernia. Please see full dictation for additional
detail. Film personally viewed.
Assessment / Plan
Obstructive uropathy
Clinical sepsis
Bacteremia with E. coli
Complicated urinary tract infection / Pyelonephritis with E. coli
Fever
Leukocytosis
Lactic acidosis; improved
NIDDM
HTN
Dyslipidemia
Recommendations:
Narrow antibiotics to ceftriaxone.
Trend white count and temperature curve.
Monitor for clinical improvement.
Follow repeat blood cultures to ensure clearance.
[2024-07-08] MEDS: STERILE WATER FOR INJECTION 20 ML IV (11:26)
[2024-07-08] MEDS: ROCEPHIN 2000 MG IV (11:26)
[2024-07-08 12:26] LABS: Glucose - Point of Care 129 mg/dl (70-99)
[2024-07-08] MEDS: ZOFRAN 4 MG IV ×2 (14:13→20:46)
--- NOTE | 2024-07-08 14:28 | PTCARENOTE ---
Dr. Rg made aware that patient vomited one large black amount. Patient stated that she was 'resting in the chair and woke up due to feeling nauseous and then threw up'. Juanjo given per JUL. to bedside. Care ongoing.
[2024-07-08] MEDS: CRESTOR 5 MG PO (17:15)
[2024-07-08 17:16] LABS: INR 1.18; PT 15.4 Sec (11.4-14.6)
[2024-07-08 17:17] LABS: APTT 41.6 Sec (23.4-35.0)
[2024-07-08 17:31] LABS: Glucose - Point of Care 128 mg/dl (70-99)
[2024-07-08 17:45] LABS: Hematocrit 30.3 % (37.0-47.0)
--- NOTE | 2024-07-08 17:49 | PTCARENOTE ---
Patient AOx3. Patient has flat affect at times. Patient on RA. IVF running per order. NSR on monitor. BP stable. Soriano removed per order. Patient peeing appropriately after soriano removal. [place] urine due to pyridium. OOB to chair assist x1. Patient
c/o headache. Medication provided per JUL. Patient c/o nausea. PRN zofran administered. 1 small loose stool per patient. Patient flushed toilet before staff able to see stool. Patients family at bedside throughout shift. Call arce within reach, bed
in lowest position, and bed of wheels locked.
--- NOTE | 2024-07-08 21:45 | PTCARENOTE ---
Rec'd pt at change of shift. Pt continues to c/o nausea. PRN zofran given per JUL. Pt able to ambulate with assistx1 to bathroom to have several liquid stools, which appear brown. Hygiene care performed. Pt c/o feeling weak. IVF remain intact
through R FA. Assessment as documented. Call arce within reach.
[2024-07-08 22:38] LABS: Glucose - Point of Care 119 mg/dl (70-99)
[2024-07-09] VITALS (17 sets, daily range): BP systolic 15–153; BP diastolic 75–98
[2024-07-09] MEDS: TYLENOL 650 MG PO ×4 (00:37→18:24)
[2024-07-09 04:37] LABS: Blood Urea Nitrogen 29 mg/dl (7-17); Calcium 8.1 mg/dl (8.4-10.2); Carbon Dioxide 17 mmol/L (22-30); Chloride 109 mmol/L (98-107); Estimated Creatinine Clearance 87 ml/min; Glucose 107 mg/dl (70-99); Potassium 3.6 mmol/L (3.5-5.1); Sodium 136 mmol/L (135-145); eGFR > 60.00
[2024-07-09 05:07] LABS: Hematocrit 26.5 % (37.0-47.0); Hemoglobin 8.7 g/dL (12.0-16.0); Mean Corp Hgb Conc. 32.8 g/dL (33.0-37.0); Mean Corpuscular Hgb 26.2 pg (27.0-31.0); Mean Corpuscular Volume 79.8 fL (81.0-99.0); Mean Platelet Volume 10.9 fL (7.4-10.4); Platelet Count 130 10^3/uL (130-400); Red Blood Cell Count 3.32 10^6/uL (4.20-5.40); Red Cell Dist. Width 13.2 % (11.5-14.5); White Blood Cell Count 12.7 10^3/uL (4.8-10.8)
[2024-07-09 06:00] LABS: Absolute Neutrophils -Man Diff 11.6 10^3/uL (1.4-6.5); Band Neutrophils 11 % (0-3); Segmented Neutrophils 81 % (42-75)
[2024-07-09 06:01] LABS: Eosinophils 1 % (0-6); Lymphocytes 4 % (20-51); Monocytes 3 % (2-9); Normal RBC Morphology Yes; Platelets Checked Yes; Total Cells Counted 100
[2024-07-09] MEDS: NSS 1000 IV ×2 (06:41→19:45)
[2024-07-09] MEDS: Pyridium 100 MG PO ×3 (06:45→23:15)
--- NOTE | 2024-07-09 06:55 | W.PN.HOSP.TC ---
Today's Communication/Plan
-
Hold Lovenox
Avoid NSAIDs
PPI GTT
Pain control
Follow Hb
Follow blood cultures
Continue antibiotics
Assessment / Plan
Assessment / Plan
Patient is a 54-year-old female with past medical history significant for NIDDM, hypertension, and hyperlipidemia who presented to [facility] ED for evaluation of left back and left flank pain found to have 1.0cm obstructing calculus
resulting in obstructive uropathy; pyelonephritis and acute emphysematous pyelitis s/p urgent placement ureteral stent.
Assessment/plan:
Coffee-ground emesis with loose stools.
-Evaluated by GI.
-Stool negative for C. difficile, norovirus.
-S/p EGD 07/09/2024 with oozing gastric ulcer and visible blood vessel, cauterized.
-Continue PPI GTT.
-Avoid NSAIDs.
-Repeat upper endoscopy in 3 months to evaluate healing by GI
-Appreciate GI.
#Septic shock 2/2 obstructive uropathy with left ureteral calculus, pyelonephritis, acute emphysematous pyelitis.
#Complicated UTI with E. coli bacteremia
-S/p uneventful cystoscopy with left ureteral stent 07/06 (Dr. Mercer).
-White count trending down.
-Continue ceftriaxone.
-Follow blood cultures, NGTD.
-Levophed weaned off.
-Rios discontinued.
#Hypokalemia
-Resolved.
#Lactic acidosis
-Improved.
#CHARLOTTE
-Continue IV fluid.
-Hold Toradol.
#Black-colored emesis
-Hb down.
-Lovenox on hold.
-Follow Hb.
#NIDDM
-A1c 7.3
-Hold home Jardiance, metformin.
-Low ISS with Accu-Cheks.
#HLD
-Continue rosuvastatin.
#Essential HTN
-Hold lisinopril.
#Iron deficiency anemia
-Start iron supplementation.
-Follow CBC.
#Non-anion gap metabolic acidosis
-Hyperchloremic.
-Suspect due to lactic acidosis has resolved vs acute infection.
-Follow CBC.
DVT PPx-SCD
CODE STATUS: FULL CODE
Data:
Abdomen/Pelvis CT
1. SEVERE ACUTE OBSTRUCTIVE UROPATHY of the LEFT KIDNEY with a 1.0 cm obstructing calculus in the left mid ureter. Severe left renal and perirenal edema/inflammation, moderate urothelial thickening, and mild air in the left renal pelvis consistent
with SEVERE ACUTE LEFT PYELONEPHRITIS and ACUTE EMPHYSEMATOUS PYELITIS.
2. Severe diffuse hepatic steatosis.
3. Mild hepatosplenomegaly.
4. Small hiatal hernia.
5. Mild diverticulosis in the sigmoid colon.
6. Grade 1 anterolisthesis of L4 on L5 secondary to severe facet joint arthrosis.
7. Severe asymmetric osteoarthritis in the left hip.
Endoscopy 07/09/2024:
- Normal esophagus.
- Small hiatal hernia.
- Oozing gastric ulcer with a visible vessel. Treated
with bipolar cautery.
- Normal examined duodenum.
- No specimens collected.
Anticipated Discharge: > 48 hours
Subjective/Interval History
-
Date of Service: July 09, 2024
I saw and examined patient with at bedside. Reports mild left flank pain that has improved from yesterday. She also reports voluminous watery diarrhea with no blood or mucus. Denies further nausea or vomiting. No fever or chills. Denies
chest pain or shortness of breath.
Objective Data
-
Labs:
Laboratory Results
07/09/24
04:02
WBC 12.7 H
Hgb 8.7 L
Hct 26.5 L
Plt Count 130
Sodium 136
Potassium 3.6
Chloride 109 H
Carbon Dioxide 17 L
BUN 29 H
Creatinine 0.8
Glucose 107 H
Calcium 8.1 L
Vital Signs:
Vital Signs
Temp Pulse Resp BP Pulse Ox
98.4 F 81 28 127/82 98
07/09/24 03:00 07/09/24 06:00 07/09/24 06:00 07/09/24 03:00 07/08/24 19:52
I&O
07/07/24 07/08/24 07/09/24
06:59 06:59 06:59
Intake Total 3058 / 3058 2330 / 2330 2160 / 2160
Output Total 900 / 900 1800 / 1800 1525 / 1525
Balance 2158 / 2158 530 / 530 635 / 635
Review of Systems
-
History Source: Patient
All other systems: Not reviewed unless documented
Constitutional: Reports Fatigue; Denies Fever or Chills
Respiratory: Reports No Symptoms; Denies Trouble Breathing or Wheezing
Cardiac: Reports No Symptoms; Denies Palpitations
Abdomen/GI: Reports Diarrhea; Denies Nausea, Vomiting, Bloody Stools or Black Stools
Genitourinary: Reports Flank Pain; Denies Dysuria or Frequency
Skin: Reports No Symptoms
Neuro: Reports No Symptoms
Physical Exam
-
General: No Apparent Distress and Comfortable
HEENT: Anicteric
Respiratory: Clear to Auscultation and Non Labored Respirations; Negative Wheezes
Cardiac: Regular Rhythm and S1/S2
GI: Soft and Nontender
Genito-urinary: Rios
Musculoskeletal: No Cyanosis and No Edema; Negative Clubbing
Skin: Warm and Dry; Negative Rash
Neuro: Awake and AO x 3
Psych: Calm
Data Reviewed
-
Diagnostic Radiology: Report Reviewed by me
Labs: Labs Reviewed by me and Discussed with Physician
Old Records: Reviewed
[2024-07-09] MEDS: ZOFRAN 4 MG IV (07:15)
--- NOTE | 2024-07-09 07:58 | W.PN.URO.CBU ---
Today's Communication / Plan
-
continue medical support
check c diff
antibx per ID
Assessment / Plan
-
stone
UTI
gram neg sepsis- ECOLI
s/p stent and soriano
continue medical support/antibx- ID following
check c diff- add probiotic
UOOB/ supportive care
Diagnosis
-
Date of Service: July 09, 2024
-
Patient Diagnosis:
stone
UTI and sepsis- ECOLI
Post Op Day:
left ureteral stent 07/06
Subjective
-
pt stable- but still feels very poorly
nausea and diarrhea
soriano out- voiding
no fevers- wbc downtrending
cx's + for ecoli-
Objective
-
Vital Signs
Temp Pulse Resp BP Pulse Ox
98.4 F 89 28 151/87 98
07/09/24 03:00 07/09/24 07:18 07/09/24 07:18 07/09/24 07:18 07/08/24 19:52
Intake and Output
07/08/24 07/09/24 07/10/24
06:59 06:59 06:59
Intake Total 2330 / 2330 2160 / 2160
Output Total 1800 / 1800 1525 / 1525
Balance 530 / 530 635 / 635
Intake:
Oral fluids 1440 / 1440 960 / 960
IV fluids (Total) 840 / 840 1200 / 1200
IV piggybacks 50 / 50
Output:
Urine, Soriano 1800 / 1800 675 / 675
Urine, Voided 850 / 850
Other:
Number of approximated MODERATE 1
amounts of urine
Number of immeasurable emeses? 1
Laboratory Results
07/09/24 04:02
07/09/24 04:02
Review of Systems
-
Constitutional: Fatigue
Respiratory: No Symptoms
Cardiac: No Symptoms
Abdomen/GI: Nausea, Vomiting and Diarrhea
: Frequency
Physical Exam
-
General - no acute distress
Abdomen - soft, non-tender
[2024-07-09] MEDS: FLORASTOR 250 MG PO ×2 (08:40→19:45)
--- NOTE | 2024-07-09 09:36 | CON.GI ---
Addendum entered and electronically signed by Rose Aviles MD 07/09/24 12:28:
I saw and examined the patient.
The FITTING ROOM CHECKER's note was reviewed and I agree with the note.
Comment: This is a pleasant 54-year-old female with past medical history as listed below who presented on 07/06 with left-sided flank pain and since admission has been diagnosed with pyelonephritis with obstructing ureteral calculus and had
cystoscopy with ureteral stent placement and we were consulted for coffee-ground emesis. Her admission hemoglobin was 13.7 and repeat is 8.7. She does use NSAIDs almost daily for the past few weeks for hip pain. No prior EGD or colonoscopy.
Assessment and plan coffee-ground emesis with OB positive stool given her recent use of NSAIDs will need to rule out possible PUD she also has hiatal hernia noted on CT possible esophagitis or Oscar's erosions. Will schedule her for endoscopy.
She is currently on twice daily PPI. She did have a drop in hemoglobin and transfuse if hemoglobin drops less than 7. Given that she also has underlying iron deficiency anemia in addition to acute blood loss anemia will also need a colonoscopy as
outpatient. Also CT shows mild hepatosplenomegaly and fatty liver possible MAFLD(no ETOH use), normal LFTS, will need workup as outpatient and FIBROSCAN
Original Note:
Consultation
-
Date/Time Consultation Requested: 07/09/24 09
Date/Time Consultation Performed: 07/09/24 0930
Requesting Provider: Ronnie Bray MD
Performing Provider: PHIL Etienne, Rose Aviles MD
Reason for Consultation: Coffee ground emesis and heme + stool
Medical History
Chief Complaint / HPI
Chief Complaint: coffee ground emesis
History of Present Illness:
Pt is a 54yo with hx NIDDM, HTN, hyperlipidemia, headaches, basal cell CA with prior mohs surgery, TKR with admission 07/06 with left sided back and flank pain on admission concern for sepsis with noted noted obstructing ureteral calculus and
pyelonephritis. Pt has been seen by urology and completed cysto with ureteral stent. Pt also noted with Ecoli UTI and bacteremia with ID evaluation. She is noted with coffee ground emesis, dark heme + stools drop in hbg initially 13.7 on admission
then down to 8.7 with BUN 20-30 range. Pt admits to daily NSAIDs prior to admission for hip pain. She also admits to increased GERD which is new and dizziness over last day. She admits to some vomiting prior to admission but denies dysphagia,
abdominal pain, or blood in stools. No hx EGD or colonoscopy in past.
Past Medical History
Past Medical History: Cancer (basal cell CA), HTN, Hypercholesterolemia, NIDDM and Other (hayfever, headaches)
Past Surgical History: Orthopedic (right TKR, prior knoww scope) and Other (mohs facial surgery )
Social History
Tobacco: Non-Smoker
Alcohol: None
Drug: None
Personal:
Living: With Family
Family History
Family History: Other (no family hx colon CA or polyps)
Allergies / Home Medications
Allergy/AdvReac Type Severity Reaction Status Date / Time
codeine Allergy Intermediate Vomiting Verified 07/06/24 11:58
�Medication �Instructions �Recorded
empagliflozin 10 mg tablet 10 mg PO DAILY Diabetes 07/06/24
(Jardiance)
lisinopril 2.5 mg tablet 2.5 mg PO DAILY Blood Pressure 07/06/24
metformin 500 mg tablet,extended 1,000 mg PO BID Diabetes 07/06/24
release 24 hr
rosuvastatin 5 mg tablet 5 mg PO QPM High Cholesterol 07/06/24
Review of Systems
-
History Source: Patient and Family
Constitutional: Reports Fever (on admission) and Night Sweats
EENT: Reports No Symptoms
Respiratory: Reports No Symptoms
Cardiac: Reports No Symptoms
Abdomen/GI: Reports Nausea, Vomiting (coffee ground emesis ) and Other (increased GERD)
: Reports No Symptoms
Musculoskeletal: Reports Other (chronic hip pain )
Skin: Reports No Symptoms
Neurological: Reports Dizzy and Weakness
Endocrine: Reports No Symptoms
Hematologic/Lymphatic: Reports Bleeding (coffee ground emesis )
Vital Signs
Temp Pulse Resp BP Pulse Ox
98.3 F 80 18 132/76 98
07/09/24 07:10 07/09/24 09:00 07/09/24 09:00 07/09/24 09:00 07/08/24 19:52
Physical Exam
Exam
General: Well Developed, Well Nourished and No Apparent Distress
HEENT: Normocephalic
Respiratory: Clear
Cardiac: Regular Rhythm
GI: Soft, Non Tender and Non Distended
Musculoskeletal: No Clubbing and No Cyanosis
Skin: Warm and Dry
Neuro: Awake, Alert and AO x 3
Psych: Calm
Results
WBC 12.7 10^3/uL (4.8-10.8) H 07/09/24 04:02
Hgb 8.7 g/dL (12.0-16.0) L 07/09/24 04:02
Hct 26.5 % (37.0-47.0) L 07/09/24 04:02
MCV 79.8 fL (81.0-99.0) L 07/09/24 04:02
Plt Count 130 10^3/uL (130-400) 07/09/24 04:02
Absolute Neuts (auto) 11.5 10^3/uL (1.4-6.5) H 07/06/24 12:13
PT 15.4 Sec (11.4-14.6) H 07/08/24 16:38
INR 1.18 07/08/24 16:38
APTT 41.6 Sec (23.4-35.0) H 07/08/24 16:38
Sodium 136 mmol/L (135-145) 07/09/24 04:02
Potassium 3.6 mmol/L (3.5-5.1) 07/09/24 04:02
Chloride 109 mmol/L (98-107) H 07/09/24 04:02
Carbon Dioxide 17 mmol/L (22-30) L 07/09/24 04:02
BUN 29 mg/dl (7-17) H 07/09/24 04:02
Creatinine 0.8 mg/dL (0.6-1.0) 07/09/24 04:02
Calcium 8.1 mg/dl (8.4-10.2) L 07/09/24 04:02
Total Bilirubin 1.3 mg/dl (0.2-1.3) 07/06/24 12:13
AST 26 U/L (14-36) 07/06/24 12:13
ALT 23 U/L (0-35) 07/06/24 12:13
Alkaline Phosphatase 122 U/L (38-126) 07/06/24 12:13
Diagnostic Image Results:
07/06/24 CT Abdomen and Pelvis without IV Contrast
1. SEVERE ACUTE OBSTRUCTIVE UROPATHY of the LEFT KIDNEY with a 1.0 cm obstructing calculus in the left mid ureter. Severe left renal and perirenal edema/inflammation, moderate urothelial thickening, and mild air in the left renal pelvis consistent
with SEVERE ACUTE LEFT PYELONEPHRITIS and ACUTE EMPHYSEMATOUS PYELITIS.
2. Severe diffuse hepatic steatosis.
3. Mild hepatosplenomegaly.
4. Small hiatal hernia.
5. Mild diverticulosis in the sigmoid colon.
6. Grade 1 anterolisthesis of L4 on L5 secondary to severe facet joint arthrosis.
7. Severe asymmetric osteoarthritis in the left hip.
Prior GI Procedures:
EGD: none
Colonoscopy: none
Assessment / Plan
-
Pt is a 54yo with hx NIDDM, HTN, hyperlipidemia, headaches, basal cell CA with prior mohs surgery, TKR with admission 07/06 with left sided back and flank pain on admission concern for sepsis with noted noted obstructing ureteral calculus and
pyelonephritis. Pt has been seen by urology and completed cysto with ureteral stent. Pt also noted with Ecoli UTI and bacteremia with ID evaluation. She is noted with coffee ground emesis, dark heme + stools drop in hbg initially 13.7 on admission
then down to 8.7 with BUN 20-30 range. Pt admits to daily NSAIDs prior to admission for hip pain. She also admits to increased GERD which is new and dizziness over last day. She admits to some vomiting prior to admission but denies dysphagia,
abdominal pain, or blood in stools. No hx EGD or colonoscopy in past.
07/06/24 CT Abdomen and Pelvis without IV Contrast
1. SEVERE ACUTE OBSTRUCTIVE UROPATHY of the LEFT KIDNEY with a 1.0 cm obstructing calculus in the left mid ureter. Severe left renal and perirenal edema/inflammation, moderate urothelial thickening, and mild air in the left renal pelvis consistent
with SEVERE ACUTE LEFT PYELONEPHRITIS and ACUTE EMPHYSEMATOUS PYELITIS.
2. Severe diffuse hepatic steatosis.
3. Mild hepatosplenomegaly.
4. Small hiatal hernia.
5. Mild diverticulosis in the sigmoid colon.
6. Grade 1 anterolisthesis of L4 on L5 secondary to severe facet joint arthrosis.
7. Severe asymmetric osteoarthritis in the left hip.
-coffee ground emesis
-diarrhea
-anemia with progressive drop after admission with iron deficiency.
-daily NSAID use for chronic hip pain
-admit to ecoli UTI/bacteremia/pyelo s/p cysto with stent placement
-small HH per CT
-severe diffuse hepatic steatosis per CT
other med problems:
-NIDDM
-HTN
-hyperlipidemia
-basal cell CA
-hx Mohs surgery
PLAN:
etiology of coffee ground emesis related to PUD with daily NSAID use, oscar lesion with noted HH on CT vs pyelo with ileus now resolving vs other
some drop in hbg since admission with mild BUN elevation
plan for EGD today
NPO til EGD
cont PPI BID
agree with IV iron
stool studies pending with increased diarrhea -- may be related to infection, bleeding vs antibiotic related diarrhea
if EGD neg will need eventual colonoscopy -- Inpatient if continued drop in hbg vs outpatient when improved with current pyelo
cont rx for pyelo
OP follow up for fatty liver
-
-
Thank you for consultation and allowing me to participate in the patient's care. Please call the operations vocational instructor GI physician during the after hours with any questions or concerns.
--- NOTE | 2024-07-09 09:44 | PTCARENOTE ---
Addendum entered by Collin Adams RN 07/09/24 13:04:
Received patient back from EGD. VSS. C/o headache, tylenol given. Started on protonix gtt. Patient visibly upset and tearful. Family at bedside providing comfort. Will closely monitor.
Original Note:
Patient AAOx3, pleasant. C/o slight dizziness, instructed on fall precautions, patient using call arce appropriately. Patient also c/o headache, chills overnight, nausea and watery diarrhea. Cdiff and norovirus sample sent. Heme + stool. PRN zofran
given with relief. VSS. at bedside. Will closely monitor.
[2024-07-09] MEDS: NOVOLOG FLEXPEN-LOW RESISTANCE SC ×3 (10:33→18:17)
[2024-07-09 10:38] LABS: Glucose - Point of Care 84 mg/dl (70-99)
[2024-07-09 10:55] LABS: Vitamin B12 768 pg/ml (239-931)
[2024-07-09] MEDS: MAGNESIUM OXIDE 500 MG PO (12:49)
[2024-07-09] MEDS: ROCEPHIN 2000 MG IV (12:49)
[2024-07-09] MEDS: SODIUM BICARBONATE 650 MG PO ×2 (12:49→19:45)
[2024-07-09] MEDS: STERILE WATER FOR INJECTION 20 ML IV (12:50)
[2024-07-09] MEDS: PROTONIX 100 IV ×2 (12:50→21:07)
--- NOTE | 2024-07-09 13:11 | W.PN.ID1 ---
Date of Service
Date of Service: July 09, 2024
Today's Communication
Continue abx.
Assessment / Plan
Obstructive uropathy
Clinical sepsis
Bacteremia with E. coli
Complicated urinary tract infection / Pyelonephritis with E. coli
Nausea / vomiting / diarrhea : Norovirus & C. diff testing negative
Fever
Leukocytosis
Lactic acidosis; improved
NIDDM
HTN
Dyslipidemia
Recommendations:
Continue ceftriaxone.
Trend white count and temperature curve.
Monitor for clinical improvement.
Follow repeat blood cultures to ensure clearance.
Chief Complaint
-: UTI and Bacteremia
Subjective / Review of Systems
Patient seen and examined. Reports nausea, vomiting and diarrhea overnight.
Vital Signs / Physical Exam
Vital Signs
Vital Signs
Temp Pulse Resp BP Pulse Ox
99.3 F 90 22 145/84 95
07/09/24 12:08 07/09/24 12:45 07/09/24 12:45 07/09/24 12:45 07/09/24 12:45
Physical Exam
Constitutional: No Acute Distress, Comfortable and Non-toxic
Eyes: Sclera Anicteric
Cardiovascular: S1/S2; Negative S3/S4
Pulmonary: Non Labored
Gastrointestinal: Soft, Non Tender, Non Distended and Normal Bowel Sounds
Genito-Urinary: CVA Tenderness
Extremities: Negative Edema or Cyanosis
Neurological: Awake, Alert and Oriented
Psychological: Calm
Objective Data
Lab Data
Lab Results
07/09/24 04:02
PT 15.4 Sec (11.4-14.6) H 07/08/24 16:38
INR 1.18 07/08/24 16:38
APTT 41.6 Sec (23.4-35.0) H 07/08/24 16:38
Estimated Creat Clear 87 ml/min 07/09/24 04:02
Lactic Acid 1.7 mmol/L (0.7-2.0) 07/07/24 05:43
Total Bilirubin 1.3 mg/dl (0.2-1.3) 07/06/24 12:13
AST 26 U/L (14-36) 07/06/24 12:13
ALT 23 U/L (0-35) 07/06/24 12:13
Alkaline Phosphatase 122 U/L (38-126) 07/06/24 12:13
Most recent labs reviewed.
Micro Results:
07/07/24 12:18 Blood Culture - Preliminary
Blood/Venous No Growth in 48 hours- Final report to follow
07/08/24 11:24 Blood Culture - Preliminary
Blood/Venous No Growth in 24 hours- Final report to follow
07/09/24 08:45 - Final
Feces/Stool Negative for Norovirus GI and GII.
07/09/24 08:45 C. difficile GDH Antigen & Toxins - Final
Feces/Stool Negative for toxigenic C.difficile
07/06/24 14:55 Blood Culture - Final
Blood/Venous Escherichia coli
Gram Stain - Final
07/06/24 14:55 Blood Culture - Final
Blood/Venous Escherichia coli
Gram Stain - Final
07/08/24 04:34 Blood Culture - Preliminary
Blood/Venous No Growth in 24 hours- Final report to follow
07/06/24 13:24 Urine Culture - Final
Urine Escherichia coli
Urine Culture Final 07/06/24
CC: Greater than 100,000 CFU/ML Escherichia coli
Organism 1 Escherichia coli
1. Escherichia coli
M.I.C. RX
--------- ---
Amoxicillin/Potas. Clavulanate >16/8 R
Ampicillin >16 R
Ampicillin/Sulbactam >16/8 R
Aztreonam <=4 S
Cefazolin >16 R
Cefepime <=2 S
Ceftazidime <=1 S
Ceftriaxone <=1 S
Ertapenem <=0.5 S
Ciprofloxacin <=0.25 S
Gentamicin <=2 S
Meropenem <=1 S
Nitrofurantoin-Urine Only <=32 S
Piperacillin/Tazobactam <=8 S
Tetracycline <=4 S
Tobramycin <=2 S
Trimethoprim/Sulfamethoxazole <=2/38 S
Imaging:
07/06/2024 CT abdomen/pelvis without contrast severe acute obstructive uropathy of the left kidney with a 1 cm obstructing calculus in the left mid ureter. Severe left renal and perirenal edema/inflammation, with moderate urothelial thickening and
mild air in the left renal pelvis consistent with acute left pyelonephritis and emphysematous pyelitis. Also noted is severe diffuse hepatic steatosis with mild hepatosplenomegaly and a small hiatal hernia. Please see full dictation for additional
detail. Film personally viewed.
Care Review
Plan reviewed with: Nurse
--- NOTE | 2024-07-09 13:59 | W.PN.UPDATE ---
Update Note
Progress Note Update
Seen earlier. Late documentation.
I saw and evaluated the patient. I reviewed the resident�s note and agree with findings and plan as documented in the resident�s note except for changes in documentation.
54-year-old female who presented to [facility] ED for evaluation of left back and left flank pain found to have 1.0cm obstructing calculus resulting in obstructive uropathy; pyelonephritis and acute emphysematous pyelitis s/p urgent
placement ureteral stent.
CT abdomen and pelvis-severe acute obstructive uropathy of the left kidney with 1 cm obstructing calculus in the left mid ureter. Severe left renal and perirenal edema/inflammation, moderate urothelial thickening and mild air in the left renal
pelvis consistent with severe acute left pyelonephritis and acute emphysematous pyelitis.
Severe diffuse hepatic steatosis, mild hepatosplenomegaly, small hiatal hernia, mild diverticulosis of the sigmoid colon, grade 1 anterolisthesis L4-L5, severe asymmetric osteoarthritis of the left hip
CVS: S1-S2 normal
Chest: CTA B/L
Abdomen: mild diffuse epigastric discomfort. Bowel sounds present
Extremities: No edema, normal pulses
ASSOCIATE DENTIST: Non focal exam
# Coffee-ground emesis with loose stools
Status post EGD 07/09/2024-normal esophagus, small hiatal hernia, oozing gastric ulcer with visible vessel treated with cautery, normal duodenum
Continue PPI
CLD today
GI eval appreciated.
# Sepsis secondary to obstructive uropathy with left ureteral calculus and pyelonephritis / acute emphysematous pyelitis
E. coli bacteremia with septic shock
Status post urgent cystoscopy and left ureteral stent placement by Dr. Mercer
Off pressors
Lactic acidosis resolved
Continue with IV ceftriaxone
Rios catheter out
White count coming down
# Hypokalemia-replaced
# Acute kidney injury-Resolved
# Diabetes-hemoglobin A1c 7.3
Was on Jardiance and metformin at home-on hold
Accu-Cheks and sliding scale coverage
# Hypertension-hold lisinopril
# Hyperlipidemia-continue statin
# Anemia-severe iron deficiency and also secondary to acute GI blood loss-replace iron IV
# Thrombocytopenia-Resolved
# Hyperchloremic metabolic acidosis
# DVT prophylaxis-Lovenox added
# Full code
Discussed with at bedside
D/W GI
D/W RN
[2024-07-09] MEDS: FERRLECIT 110 MG IV (14:51)
[2024-07-09 14:56] LABS: Hematocrit 27.4 % (37.0-47.0); Hemoglobin 8.9 g/dL (12.0-16.0)
[2024-07-09] MEDS: CRESTOR 5 MG PO (17:15)
[2024-07-09 18:11] LABS: Glucose - Point of Care 83 mg/dl (70-99)
[2024-07-09 23:29] LABS: Glucose - Point of Care 97 mg/dl (70-99)
[2024-07-10] VITALS (12 sets, daily range): BP systolic 118–152; BP diastolic 71–94
[2024-07-10 04:24] LABS: % Basophils 0.4 % (0-2); % Eosinophils 0.5 % (0-6); % Immature Granulocytes 1.4 % (0-0.5); % Neutrophils 84.7 % (42.2-75.2); Absolute Eosinophils 0.1 10^3/uL (0-0.7); Absolute Immature Granulocytes 0.2 10^3/uL (0-0.05); Absolute Monocytes 0.4 10^3/uL (0.1-0.6); Absolute Neutrophils 9.2 10^3/uL (1.4-6.5); Hematocrit 28.9 % (37.0-47.0); Hemoglobin 9.4 g/dL (12.0-16.0); Mean Corp Hgb Conc. 32.5 g/dL (33.0-37.0); Mean Corpuscular Hgb 26.4 pg (27.0-31.0); Mean Corpuscular Volume 81.2 fL (81.0-99.0); Mean Platelet Volume 10.3 fL (7.4-10.4); Nucleated Red Blood Cells % 0 %; Platelet Count 146 10^3/uL (130-400); Red Blood Cell Count 3.56 10^6/uL (4.20-5.40); Red Cell Dist. Width 13.4 % (11.5-14.5); White Blood Cell Count 10.8 10^3/uL (4.8-10.8)
[2024-07-10 04:51] LABS: Blood Urea Nitrogen 14 mg/dl (7-17); Calcium 8.8 mg/dl (8.4-10.2); Carbon Dioxide 17 mmol/L (22-30); Chloride 108 mmol/L (98-107); Estimated Creatinine Clearance 87 ml/min; Glucose 85 mg/dl (70-99); Potassium 3.6 mmol/L (3.5-5.1); Sodium 137 mmol/L (135-145); eGFR > 60.00
--- NOTE | 2024-07-10 06:01 | PTCARENOTE ---
No acute events overnight. No complaints of pain. Continues with diarrhea. Afebrile.
--- NOTE | 2024-07-10 06:46 | W.PN.HOSP.TC ---
Today's Communication/Plan
-
Continue PPI
Avoid NSAIDs
Follow CBC and BMP
Follow blood cultures
Continue antibiotics
Early ambulation
Assessment / Plan
Assessment / Plan
Patient is a 54-year-old female with past medical history significant for NIDDM, hypertension, and hyperlipidemia who presented to [facility] ED for evaluation of left back and left flank pain found to have 1.0cm obstructing calculus
resulting in obstructive uropathy; pyelonephritis and acute emphysematous pyelitis s/p urgent placement ureteral stent.
Assessment/plan:
Coffee-ground emesis with loose stools.
-From bleeding PUD secondary to chronic NSAID use.
-S/p EGD 07/09/2024 with oozing gastric ulcer and visible blood vessel, cauterized.
-Continue PPI GTT.
-Avoid NSAIDs.
-Repeat upper endoscopy in 3 months to evaluate healing by GI
-Appreciate GI.
#Acute diarrhea
-Suspect resolving ileus vs acute GI infection.
-Stool studies negative for norovirus, C. difficile.
-Colonoscopy inpatient if Hb continues to drop by GI, otherwise outpatient when current pyelo and diarrhea resolves.
#Septic shock 2/2 obstructive uropathy with left ureteral calculus, pyelonephritis, acute emphysematous pyelitis.
#Complicated UTI with E. coli bacteremia
-S/p uneventful cystoscopy with left ureteral stent 07/06 (Dr. Mercer).
-White count trending down.
-Continue ceftriaxone.
-Follow blood cultures, NGTD.
-Levophed weaned off.
-Rios discontinued.
#Hypokalemia
-Resolved.
#Lactic acidosis
-Improved.
#CHARLOTTE
-Continue IV fluid.
-Hold Toradol.
#Black-colored emesis
-Hb down.
-Lovenox on hold.
-Follow Hb.
#NIDDM
-A1c 7.3
-Hold home Jardiance, metformin.
-Low ISS with Accu-Cheks.
#HLD
-Continue rosuvastatin.
#Essential HTN
-Hold lisinopril.
#Iron deficiency anemia
-Hb improved with IV iron replacement.
-Follow CBC.
#Non-anion gap metabolic acidosis
-Suspect bicarb GI losses.
-Follow BMP.
DVT PPx-SCD
CODE STATUS: FULL CODE
Data:
Abdomen/Pelvis CT
1. SEVERE ACUTE OBSTRUCTIVE UROPATHY of the LEFT KIDNEY with a 1.0 cm obstructing calculus in the left mid ureter. Severe left renal and perirenal edema/inflammation, moderate urothelial thickening, and mild air in the left renal pelvis consistent
with SEVERE ACUTE LEFT PYELONEPHRITIS and ACUTE EMPHYSEMATOUS PYELITIS.
2. Severe diffuse hepatic steatosis.
3. Mild hepatosplenomegaly.
4. Small hiatal hernia.
5. Mild diverticulosis in the sigmoid colon.
6. Grade 1 anterolisthesis of L4 on L5 secondary to severe facet joint arthrosis.
7. Severe asymmetric osteoarthritis in the left hip.
Endoscopy 07/09/2024:
- Normal esophagus.
- Small hiatal hernia.
- Oozing gastric ulcer with a visible vessel. Treated
with bipolar cautery.
- Normal examined duodenum.
- No specimens collected.
Anticipated Discharge: 24 - 48 hours
Subjective/Interval History
-
Date of Service: July 10, 2024
I saw and examined patient today. Patient reported that she is feeling better today. However, she has had 4 watery BMs since midnight. Denies blood or mucus in her BM. She is able to stand and walk on her own and states that she is improving
clinically. She does not have any palpitations, fever, chills, chest pain, shortness of breath. She also reports that her flank pain has improved and does not report any generalized abdominal pain.
Objective Data
-
Labs:
Laboratory Results
07/10/24
03:59
WBC 10.8
Hgb 9.4 L
Hct 28.9 L
Plt Count 146
Sodium 137
Potassium 3.6
Chloride 108 H
Carbon Dioxide 17 L
BUN 14
Creatinine 0.8
Glucose 85
Calcium 8.8
Vital Signs:
Vital Signs
Temp Pulse Resp BP Pulse Ox
98.8 F 74 26 136/74 92
07/10/24 04:00 07/10/24 06:00 07/10/24 06:00 07/10/24 06:00 07/10/24 06:00
I&O
07/08/24 07/09/24 07/10/24
06:59 06:59 06:59
Intake Total 2330 / 2330 2160 / 2160 1240 / 1240
Output Total 1800 / 1800 1525 / 1525
Balance 530 / 530 635 / 635 1240 / 1240
Review of Systems
-
History Source: Patient
All other systems: Not reviewed unless documented
Constitutional: Reports Fatigue; Denies Fever or Chills
Respiratory: Reports No Symptoms; Denies Trouble Breathing or Wheezing
Cardiac: Reports No Symptoms; Denies Palpitations
Abdomen/GI: Reports Diarrhea; Denies Nausea, Vomiting, Bloody Stools or Black Stools
Genitourinary: Reports Flank Pain; Denies Dysuria or Frequency
Skin: Reports No Symptoms
Neuro: Reports No Symptoms
Physical Exam
-
General: No Apparent Distress and Comfortable
HEENT: Anicteric
Respiratory: Clear to Auscultation and Non Labored Respirations; Negative Wheezes
Cardiac: Regular Rhythm and S1/S2
GI: Soft and Nontender
Genito-urinary: Rios
Musculoskeletal: No Cyanosis and No Edema; Negative Clubbing
Skin: Warm and Dry; Negative Rash
Neuro: Awake and AO x 3
Psych: Calm
Data Reviewed
-
Diagnostic Radiology: Report Reviewed by me
Labs: Labs Reviewed by me and Discussed with Physician
[2024-07-10] MEDS: PROTONIX 100 IV ×2 (06:56→15:18)
--- NOTE | 2024-07-10 07:57 | W.PN.URO.CBU ---
Today's Communication / Plan
-
continue antibx
outpt f/u to discuss stone surgery
Assessment / Plan
-
stone
UTI
gram neg sepsis- ECOLI
s/p stent and soriano
continue medical support/antibx- ID following
continue probiotic
UOOB/ supportive care
after discharge- outpt f/u to discuss stone removal
Diagnosis
-
Date of Service: July 10, 2024
-
Patient Urologic Diagnosis:
stone
UTI and sepsis- ECOLI
Post Op Day:
left ureteral stent 07/06
Subjective
-
pt had cauterization of bleeding ulcer yesterday
feels better today
all labs stable
Objective
-
Vital Signs
Temp Pulse Resp BP Pulse Ox
98.8 F 74 26 136/74 92
07/10/24 04:00 07/10/24 06:00 07/10/24 06:00 07/10/24 06:00 07/10/24 06:00
Intake and Output
07/09/24 07/10/24 07/11/24
06:59 06:59 06:59
Intake Total 2160 / 2160 1240 / 1240
Output Total 1525 / 1525
Balance 635 / 635 1240 / 1240
Intake:
Oral fluids 960 / 960 240 / 240
IV fluids (Total) 1200 / 1200 1000 / 1000
Output:
Urine, Soriano 675 / 675
Urine, Voided 850 / 850
Other:
Number of approximated MODERATE 1 3
amounts of urine
Number of approximated LARGE 2
amounts of urine
Number of immeasurable emeses? 1
Number of unmeasured liquid
stools
Rectum 2
Laboratory Results
07/10/24 03:59
07/10/24 03:59
Review of Systems
-
Constitutional: Fatigue
Respiratory: No Symptoms
Cardiac: No Symptoms
Abdomen/GI: Nausea (improved)
: Frequency
Physical Exam
-
General - no acute distress
[2024-07-10 08:07] LABS: Glucose - Point of Care 84 mg/dl (70-99)
[2024-07-10] MEDS: NOVOLOG FLEXPEN-LOW RESISTANCE SC (08:29)
[2024-07-10] MEDS: Pyridium 100 MG PO ×2 (08:29→15:12)
[2024-07-10] MEDS: FLORASTOR 250 MG PO ×2 (08:29→19:51)
[2024-07-10] MEDS: MAGNESIUM OXIDE 500 MG PO (08:29)
--- NOTE | 2024-07-10 08:32 | PTCARENOTE ---
Pt helped to BR , had a loose stool in tiolet, brushing teeth HR up while doing so.
--- NOTE | 2024-07-10 10:59 | W.PN.ID1 ---
Date of Service
Date of Service: July 10, 2024
Today's Communication
Continue antibiotics.
Assessment / Plan
Obstructive uropathy
Clinical sepsis
Bacteremia with E. coli
Complicated urinary tract infection / Pyelonephritis with E. coli
Nausea / vomiting / diarrhea
- resolved
- Norovirus & C. diff testing negative
Fever
Leukocytosis
Lactic acidosis; improved
NIDDM
HTN
Dyslipidemia
Recommendations:
Continue ceftriaxone while inpatient. Transition to oral cefdinir at time of discharge, to continue through 07/21/24
Monitor white count and temperature curve.
Outpatient follow-up with Urology regarding definitive stone treatment.
Chief Complaint
-: UTI and Bacteremia
Subjective / Review of Systems
Patient seen and examined. Reports feeling improved today. Notes less mental fogginess. Decreased left flank discomfort.
Vital Signs / Physical Exam
Vital Signs
Vital Signs
Temp Pulse Resp BP Pulse Ox
98.6 F 74 17 137/82 95
07/10/24 07:15 07/10/24 10:00 07/10/24 10:00 07/10/24 10:00 07/10/24 10:52
Physical Exam
Constitutional: No Acute Distress, Comfortable and Non-toxic
Eyes: Sclera Anicteric
Cardiovascular: S1/S2; Negative S3/S4
Pulmonary: Non Labored
Gastrointestinal: Soft, Non Tender, Non Distended and Normal Bowel Sounds
Genito-Urinary: CVA Tenderness (Minimal)
Extremities: Negative Edema or Cyanosis
Neurological: Awake, Alert and Oriented
Psychological: Calm
Objective Data
Lab Data
Lab Results
07/10/24 03:59
07/10/24 03:59
PT 15.4 Sec (11.4-14.6) H 07/08/24 16:38
INR 1.18 07/08/24 16:38
APTT 41.6 Sec (23.4-35.0) H 07/08/24 16:38
Estimated Creat Clear 87 ml/min 07/10/24 03:59
Lactic Acid 1.7 mmol/L (0.7-2.0) 07/07/24 05:43
Total Bilirubin 1.3 mg/dl (0.2-1.3) 07/06/24 12:13
AST 26 U/L (14-36) 07/06/24 12:13
ALT 23 U/L (0-35) 07/06/24 12:13
Alkaline Phosphatase 122 U/L (38-126) 07/06/24 12:13
Most recent labs reviewed.
Micro Results:
07/08/24 04:34 Blood Culture - Preliminary
Blood/Venous No Growth in 48 hours- Final report to follow
07/07/24 12:18 Blood Culture - Preliminary
Blood/Venous No Growth in 48 hours- Final report to follow
07/08/24 11:24 Blood Culture - Preliminary
Blood/Venous No Growth in 24 hours- Final report to follow
07/09/24 08:45 - Final
Feces/Stool Negative for Norovirus GI and GII.
07/09/24 08:45 C. difficile GDH Antigen & Toxins - Final
Feces/Stool Negative for toxigenic C.difficile
07/06/24 14:55 Blood Culture - Final
Blood/Venous Escherichia coli
Gram Stain - Final
07/06/24 14:55 Blood Culture - Final
Blood/Venous Escherichia coli
Gram Stain - Final
07/06/24 13:24 Urine Culture - Final
Urine Escherichia coli
Urine Culture Final 07/06/24
CC: Greater than 100,000 CFU/ML Escherichia coli
Organism 1 Escherichia coli
1. Escherichia coli
M.I.C. RX
--------- ---
Amoxicillin/Potas. Clavulanate >16/8 R
Ampicillin >16 R
Ampicillin/Sulbactam >16/8 R
Aztreonam <=4 S
Cefazolin >16 R
Cefepime <=2 S
Ceftazidime <=1 S
Ceftriaxone <=1 S
Ertapenem <=0.5 S
Ciprofloxacin <=0.25 S
Gentamicin <=2 S
Meropenem <=1 S
Nitrofurantoin-Urine Only <=32 S
Piperacillin/Tazobactam <=8 S
Tetracycline <=4 S
Tobramycin <=2 S
Trimethoprim/Sulfamethoxazole <=2/38 S
Imaging:
07/06/2024 CT abdomen/pelvis w/o contrast: severe acute obstructive uropathy of the left kidney with a 1 cm obstructing calculus in the left mid ureter. Severe left renal and perirenal edema/inflammation, with moderate urothelial thickening and mild
air in the left renal pelvis consistent with acute left pyelonephritis and emphysematous pyelitis. Also noted is severe diffuse hepatic steatosis with mild hepatosplenomegaly and a small hiatal hernia. Please see full dictation for additional
detail. Film personally viewed.
[2024-07-10 11:26] LABS: Magnesium 1.8 mg/dl (1.6-2.3)
[2024-07-10] MEDS: ROCEPHIN 2000 MG IV (12:16)
[2024-07-10] MEDS: STERILE WATER FOR INJECTION 20 ML IV (12:17)
[2024-07-10] MEDS: TYLENOL 650 MG PO ×2 (12:26→18:28)
[2024-07-10] MEDS: NOVOLOG FLEXPEN-LOW RESISTANCE 1 UNITS SC ×2 (12:27→17:33)
[2024-07-10 12:37] LABS: Glucose - Point of Care 151 mg/dl (70-99)
--- NOTE | 2024-07-10 13:56 | W.PN.UPDATE ---
Update Note
Progress Note Update
Seen earlier. Late documentation.
I saw and evaluated the patient. I reviewed the resident�s note and agree with findings and plan as documented in the resident�s note except for changes in documentation.
54-year-old female who presented to [facility] ED for evaluation of left back and left flank pain found to have 1.0cm obstructing calculus resulting in obstructive uropathy; pyelonephritis and acute emphysematous pyelitis s/p urgent
placement ureteral stent.
CT abdomen and pelvis-severe acute obstructive uropathy of the left kidney with 1 cm obstructing calculus in the left mid ureter. Severe left renal and perirenal edema/inflammation, moderate urothelial thickening and mild air in the left renal
pelvis consistent with severe acute left pyelonephritis and acute emphysematous pyelitis.
Severe diffuse hepatic steatosis, mild hepatosplenomegaly, small hiatal hernia, mild diverticulosis of the sigmoid colon, grade 1 anterolisthesis L4-L5, severe asymmetric osteoarthritis of the left hip
CVS: S1-S2 normal
Chest: CTA B/L
Abdomen: Soft and nontender bowel sounds present
Extremities: No edema
# Coffee-ground emesis with loose stools
Status post EGD 07/09/2024-normal esophagus, small hiatal hernia, oozing gastric ulcer with visible vessel treated with cautery, normal duodenum
Continue PPI
Diet advanced to full liquids
GI eval appreciated.
# Sepsis secondary to obstructive uropathy with left ureteral calculus and pyelonephritis / acute emphysematous pyelitis
E. coli bacteremia with septic shock
Status post urgent cystoscopy and left ureteral stent placement by Dr. Mercer
Off pressors
Lactic acidosis resolved
Continue with IV ceftriaxone
Rios catheter out
White count coming down
# Hypokalemia-replaced
# Acute kidney injury-Resolved
# Diabetes-hemoglobin A1c 7.3
Was on Jardiance and metformin at home-on hold
Accu-Cheks and sliding scale coverage
Restart metformin when diarrhea is better
Jardiance-hold until stone procedure is completed
# Hypertension-Restart lisinopril
# Hyperlipidemia-continue statin
# Anemia-severe iron deficiency and also secondary to acute GI blood loss-replace iron IV
# Thrombocytopenia-Resolved
# Hyperchloremic metabolic acidosis
# DVT prophylaxis-Lovenox added
# Full code
Discussed with family at bedside
D/W GI
D/W RN
Transfer to telemetry
If diarrhea improves patient can be discharged tomorrow
[2024-07-10] MEDS: FERRLECIT 110 MG IV (14:02)
[2024-07-10] MEDS: ZESTRIL 2.5 MG PO (15:12)
[2024-07-10] MEDS: SODIUM BICARBONATE 650 MG PO ×2 (15:12→20:38)
--- NOTE | 2024-07-10 16:21 | CM ---
Patient with Dx Sepsis, left ureteral calculus and pyelonephritis s/p cystoscopy and left ureteral stent. Receiving IV Abx. Per nurse; ambulating in room. Rios catheter out.
Spoke with patient who is aware of possible d/c tomorrow. She says she will have a lot of support at home from her and 5 children, and one of them will provide transport home. She is not interested in having VN unless labwork is ordered as
she is unsure she will feel able to go out to a lab.
No CM d/c needs identified.
Plan home.
--- NOTE | 2024-07-10 17:18 | W.PN.GI.CBS2 ---
Addendum entered and electronically signed by Rose Aviles MD 07/10/24 17:26:
Stool negative for C. difficile negative norovirus
Will add probiotics since she still has diarrhea but overall improved could also be antibiotic associated now
Original Note:
Today's Communication / Plan
-
Continue PPI drip can change to IV twice daily in AM
Continue full liquids will advance to low residue diet in a.m. if no further bleeding
monitor HB
Assessment / Plan
-
Pt is a 54yo with hx NIDDM, HTN, hyperlipidemia, headaches, basal cell CA with prior mohs surgery, TKR with admission 07/06 with left sided back and flank pain on admission concern for sepsis with noted noted obstructing ureteral calculus and
pyelonephritis. Pt has been seen by urology and completed cysto with ureteral stent. Pt also noted with Ecoli UTI and bacteremia with ID evaluation. She is noted with coffee ground emesis, dark heme + stools drop in hbg initially 13.7 on admission
then down to 8.7 with BUN 20-30 range. Pt admits to daily NSAIDs prior to admission for hip pain. She also admits to increased GERD which is new and dizziness over last day. She admits to some vomiting prior to admission but denies dysphagia,
abdominal pain, or blood in stools. No hx EGD or colonoscopy in past.
07/06/24 CT Abdomen and Pelvis without IV Contrast
1. SEVERE ACUTE OBSTRUCTIVE UROPATHY of the LEFT KIDNEY with a 1.0 cm obstructing calculus in the left mid ureter. Severe left renal and perirenal edema/inflammation, moderate urothelial thickening, and mild air in the left renal pelvis consistent
with SEVERE ACUTE LEFT PYELONEPHRITIS and ACUTE EMPHYSEMATOUS PYELITIS.
2. Severe diffuse hepatic steatosis.
3. Mild hepatosplenomegaly.
4. Small hiatal hernia.
5. Mild diverticulosis in the sigmoid colon.
6. Grade 1 anterolisthesis of L4 on L5 secondary to severe facet joint arthrosis.
7. Severe asymmetric osteoarthritis in the left hip.
-coffee ground emesis
-diarrhea
-anemia with progressive drop after admission with iron deficiency.
-daily NSAID use for chronic hip pain
-admit to ecoli UTI/bacteremia/pyelo s/p cysto with stent placement
-small HH per CT
-severe diffuse hepatic steatosis per CT
other med problems:
-NIDDM
-HTN
-hyperlipidemia
-basal cell CA
-hx Mohs surgery
PLAN:
EGD 07/09 -bleeding gastric ulcer status post cautery
No further bleeding and hemoglobin remained stable
on full liquids will adv to LRD in AM
Most likely was related to NSAID use
Avoid NSAIDs
Continue PPI drip can DC in a.m. and then twice daily for 1 month and then daily
Repeat endoscopy in 3 months to check for healing along with screening colonoscopy
cont rx for pyelo
OP follow up for fatty liver
CT shows mild hepatosplenomegaly and fatty liver possible MAFLD(no ETOH use), normal LFTS, will need workup as outpatient and FIBROSCAN
Subjective
Subjective
Date of Service: July 10, 2024
Status post EGD yesterday with cautery of bleeding gastric ulcer
She had a few episodes of melena yesterday none today
Hemoglobin remained stable
Objective
Data Reviewed
Laboratory Data:
Laboratory Results
07/10/24 03:59
07/10/24 03:59
Laboratory Results
PT 15.4 Sec (11.4-14.6) H 07/08/24 16:38
INR 1.18 07/08/24 16:38
APTT 41.6 Sec (23.4-35.0) H 07/08/24 16:38
Magnesium 1.8 mg/dl (1.6-2.3) 07/10/24 03:59
Total Bilirubin 1.3 mg/dl (0.2-1.3) 07/06/24 12:13
AST 26 U/L (14-36) 07/06/24 12:13
ALT 23 U/L (0-35) 07/06/24 12:13
Alkaline Phosphatase 122 U/L (38-126) 07/06/24 12:13
Vital Signs and I&O:
Vital Signs
Temp Pulse Resp BP Pulse Ox
98 F 85 20 140/82 97
07/10/24 11:10 07/10/24 16:00 07/10/24 16:00 07/10/24 16:00 07/10/24 16:00
I&O
07/09/24 07/10/24 07/11/24
06:59 06:59 06:59
Intake Total 2160 / 2160 1240 / 1240 110 / 110
Output Total 1525 / 1525
Balance 635 / 635 1240 / 1240 110 / 110
07/09/24 EGD
Impression: - Normal esophagus.
- Small hiatal hernia.
- Oozing gastric ulcer with a visible vessel. Treated
with bipolar cautery.
- Normal examined duodenum.
- No specimens collected.
Physical Exam
Physical Exam
Cardiology: Normal Sinus Rhythm
Pulmonary: Clear
GI: Soft, Non Distended, Non Tender and Normal Bowel Sounds
[2024-07-10 17:26] LABS: Glucose - Point of Care 190 mg/dl (70-99)
[2024-07-10] MEDS: CRESTOR 5 MG PO (17:34)
--- NOTE | 2024-07-10 18:16 | PTCARENOTE ---
Report to 405-2
[2024-07-10 21:13] LABS: Glucose - Point of Care 217 mg/dl (70-99)
[2024-07-11] MEDS: PROTONIX 100 IV ×2 (01:19→11:30)
[2024-07-11] MEDS: TYLENOL 650 MG PO ×4 (03:25→22:33)
[2024-07-11 03:45] VITALS: BP 135/81
--- NOTE | 2024-07-11 06:53 | W.PN.HOSP.TC ---
Addendum entered and electronically signed by Ronnie Najera MD 07/11/24 15:39:
I saw and evaluated the patient. I reviewed the resident�s note and agree with findings and plan as documented in the resident�s note.
Patient was seen and was at bedside. She stated that she did not sleep well last night because of her roommate being very active.
Had some blood in the stools yesterday none today.
No nausea or vomiting tolerating diet
Hemoglobin drop by 1 g noted
Plan is to continue with diet and follow labs tomorrow
Protonix drip dropped and changed to p.o. twice daily
If hemoglobin drops further or any bleeding will need repeat EGD tomorrow otherwise patient can be discharged tomorrow on p.o. antibiotics.
Discussed with at bedside
Also discussed with nurse in charge to see if patient can get a different room.
Original Note:
Today's Communication/Plan
-
Monitor and replete electrolytes
Transition to oral PPI at discharge
Continue ceftriaxone and transition to cefdinir until 07/21/2024
Assessment / Plan
Assessment / Plan
Patient is a 54-year-old female with past medical history significant for NIDDM, hypertension, and hyperlipidemia who presented to [facility] ED for evaluation of left back and left flank pain found to have 1.0cm obstructing calculus
resulting in obstructive uropathy; pyelonephritis and acute emphysematous pyelitis s/p urgent placement ureteral stent.
Assessment/plan:
#Bleeding gastric ulcer s/p cautery 07/09.
-Suspect due to NSAID use.
-1 episode of bloody BM 07/10, Hb 8.1, 8.2 on recheck, most likely residual blood.
-Advance diet to low residue.
-Transition to oral PPI oral twice daily for 1 month and then daily per GI.
-Avoid NSAIDs.
-Appreciate GI.
-Repeat upper endoscopy in 3 months to evaluate healing by GI
-Outpatient follow-up for metabolic dysfunction associated fatty liver disease for workup with FibroScan.
#Septic shock 2/2 obstructive uropathy with left ureteral calculus, pyelonephritis, acute emphysematous pyelitis.
#Complicated UTI with E. coli bacteremia
-Leukocytosis resolved, patient hemodynamically stable.
-S/p uneventful cystoscopy with left ureteral stent 07/06 (Dr. Mercer).
-Continue ceftriaxone and transition to oral cefdinir and continue until 07/21/2024 per ID.
-Follow-up blood cultures x 2 NGTD.
-Outpatient urology follow-up for definitive stone treatment.
-Appreciate ID.
#Acute diarrhea
-Resolved.
-Suspect resolving ileus vs acute GI infection.
-Stool studies negative for norovirus, C. difficile.
-Outpatient colonoscopy when current pyelo and diarrhea resolves.
#Hypokalemia
-Monitor and replete.
#Lactic acidosis
-Resolved.
#CHARLOTTE
-Resolved.
#NIDDM
-A1c 7.3
-Hold home Jardiance, metformin.
-Low ISS with Accu-Cheks.
#HLD
-Continue rosuvastatin.
#Essential HTN
-Hold lisinopril.
#Iron deficiency anemia
-Hb stable.
-Follow CBC.
#Non-anion gap metabolic acidosis
-Suspect bicarb GI losses.
-Follow BMP.
DVT PPx-SCD
CODE STATUS: FULL CODE
Data:
Abdomen/Pelvis CT
1. SEVERE ACUTE OBSTRUCTIVE UROPATHY of the LEFT KIDNEY with a 1.0 cm obstructing calculus in the left mid ureter. Severe left renal and perirenal edema/inflammation, moderate urothelial thickening, and mild air in the left renal pelvis consistent
with SEVERE ACUTE LEFT PYELONEPHRITIS and ACUTE EMPHYSEMATOUS PYELITIS.
2. Severe diffuse hepatic steatosis.
07/09. Mild hepatosplenomegaly.
4. Small hiatal hernia.
5. Mild diverticulosis in the sigmoid colon.
6. Grade 1 anterolisthesis of L4 on L5 secondary to severe facet joint arthrosis.
7. Severe asymmetric osteoarthritis in the left hip.
Endoscopy 07/09/2024:
- Normal esophagus.
- Small hiatal hernia.
- Oozing gastric ulcer with a visible vessel. Treated
with bipolar cautery.
- Normal examined duodenum.
- No specimens collected.
Abdominal x-ray 07/06/2024:
Left double-J ureteral stent in normal position.
Anticipated Discharge: Today
Subjective/Interval History
-
Date of Service: July 11, 2024
# Examined patient. She was reported to have had bloody BM overnight. Patient was stable, in no acute distress. Denied abdominal pain, dizziness, nausea, vomiting or diarrhea. She did not remember having a bloody BM. She endorses some headache
that responds to Tylenol.
Objective Data
-
Labs:
Laboratory Results
07/11/24
06:51
WBC Pending
Hgb Pending
Hct Pending
Plt Count Pending
Sodium Pending
Potassium Pending
Chloride Pending
Carbon Dioxide Pending
BUN Pending
Creatinine Pending
Glucose Pending
Calcium Pending
Vital Signs:
Vital Signs
Temp Pulse Resp BP Pulse Ox
98.5 F 78 18 135/81 96
07/11/24 03:45 07/11/24 03:45 07/11/24 03:45 07/11/24 03:45 07/11/24 03:45
I&O
07/09/24 07/10/24 07/11/24
06:59 06:59 06:59
Intake Total 2160 / 2160 1240 / 1240 590 / 590
Output Total 1525 / 1525
Balance 635 / 635 1240 / 1240 590 / 590
Review of Systems
-
History Source: Patient
All other systems: Not reviewed unless documented
Constitutional: Denies Fever or Chills
Respiratory: Reports No Symptoms; Denies Trouble Breathing or Wheezing
Cardiac: Reports No Symptoms; Denies Palpitations
Abdomen/GI: Reports Diarrhea; Denies Nausea, Vomiting, Bloody Stools or Black Stools
Genitourinary: Reports Flank Pain; Denies Dysuria or Frequency
Musculoskeletal: Reports No Symptoms
Skin: Reports No Symptoms
Neuro: Reports No Symptoms
Physical Exam
-
General: No Apparent Distress and Comfortable
HEENT: Anicteric
Respiratory: Clear to Auscultation and Non Labored Respirations; Negative Wheezes
Cardiac: Regular Rhythm and S1/S2
GI: Soft and Nontender
Musculoskeletal: No Cyanosis and No Edema; Negative Clubbing
Skin: Warm and Dry; Negative Rash
Neuro: Awake and AO x 3
Psych: Calm
Data Reviewed
-
Labs: Labs Reviewed by me and Discussed with Physician
[2024-07-11 07:35] VITALS: BP 138/80
--- NOTE | 2024-07-11 07:42 | W.DCSUMMARY ---
Addendum entered and electronically signed by Ronnie Najera MD 07/13/24 16:30:
Read, reviewed, and agree. See same day progress note for additional details. Time spent coordinating care, DC planning, review of DC plan of care with resident, transition of care, review of records in EMR, med rec, consults, notes, d/w
consultants, nursing, family, and CM
Original Note:
Documented by User: Ean Rg MD, Resident 07/12/24 17:27
Discharge Summary
Discharge Data
Date of Admission: 07/06/24
Date of Discharge: 07/12/24
-
Pending Results: No
Hospital Course
Discharging Physician : Reinaldo Trujillo MD ; Ean Rg MD
Disposition : Home
Primary care physician : Leslye Lynn PA-C
Principal Discharge diagnosis :
Obstructive uropathy
E. coli bacteremia with septic shock
Lactic acidosis
Bleeding gastric ulcer
Acute kidney injury
Type 2 diabetes mellitus
Essential hypertension
Hyperlipidemia
Iron deficiency anemia
Thrombocytopenia
Metabolic dysfunction-associated fatty liver disease
Diverticulosis
Hospital Course :
Patient is a 54-year-old female with past medical history significant for NIDDM, hypertension, and hyperlipidemia who presented to [facility] ED for evaluation of left back and left flank pain. A While in the ED, her WBC count was
12.1,Lactic acid 4.3, she was febrile with Tmax 102.7, tachycardic in the upper 120s.n urgent CT abdomen and pelvis showed severe acute obstructive uropathy of left kidney with 1.0cm obstructing calculus in the left mid ureter, severe left perirenal
edema/inflammation consistent with severe acute left pyelonephritis and acute emphysematous pyelitis. Patient was started on IV Rocephin and gentamicin, urology was urgently consulted and she was admitted to IMU.
Sepsis secondary to obstructive uropathy with E. coli bacteremia: Patient underwent an urgent cystoscopy with left ureteral stent placement by Dr. Mercer. Her antibiotics were continued and both blood and urine cultures were positive for E. coli.
Patient was also seen by infectious disease and her antibiotics was narrowed to ceftriaxone. She was weaned off pressors and her blood pressure continued to improve. On the day of discharge, patient was transition to oral cefdinir 300 mg twice
daily and given a prescription for an additional 9 days course of the antibiotics.
Bleeding gastric ulcer: 2 nights after procedure, patient had a coffee-ground emesis and loose stools diarrhea also heme positive. Patient was seen and evaluated by GI and underwent an EGD on 07/09/2024 which showed oozing gastric ulcer with
visible vessel that was cauterized. Stool testing for C. difficile and norovirus were both negative. She was observed for another day and her diet was advanced. Her lactic acidosis resolved and white cell count improved. She was started on IV
Protonix which was transitioned to oral on the day of discharge. Patient has been advised to continue oral Protonix 40 mg twice daily for 1 month and then transition to once daily thereafter. Patient has been instructed to avoid NSAIDs and to
follow-up in 3 months with GI for repeat endoscopy to evaluate healing of the gastric ulcer.
Iron deficiency anemia: Patient's hemoglobin suddenly dropped on day 4 of admission and she was reported to have a bloody bowel movement the night before. Patient was observed on telemetry and received IV iron infusion due to iron deficiency
anemia. She had no further bleeding throughout her stay and there was no indication for further evaluation with a repeat EGD. She received 1 more dose of IV iron infusion and has been instructed to take oral iron supplements upon discharge.
Metabolic dysfunction-associated fatty liver disease: Patient CT scan also reported severe diffuse hepatic steatosis which is consistent with nonalcohol fatty liver disease. She has been instructed to follow-up with GI for FibroScan and further
workup to prevent cirrhosis.
Important imaging findings :
Abdomen/Pelvis CT
1. SEVERE ACUTE OBSTRUCTIVE UROPATHY of the LEFT KIDNEY with a 1.0 cm obstructing calculus in the left mid ureter. Severe left renal and perirenal edema/inflammation, moderate urothelial thickening, and mild air in the left renal pelvis consistent
with SEVERE ACUTE LEFT PYELONEPHRITIS and ACUTE EMPHYSEMATOUS PYELITIS.
2. Severe diffuse hepatic steatosis.
07/09. Mild hepatosplenomegaly.
4. Small hiatal hernia.
5. Mild diverticulosis in the sigmoid colon.
6. Grade 1 anterolisthesis of L4 on L5 secondary to severe facet joint arthrosis.
7. Severe asymmetric osteoarthritis in the left hip.
Abdominal x-ray 07/06/2024:
Left double-J ureteral stent in normal position.
Procedure findings :
Endoscopy 07/09/2024:
- Normal esophagus.
- Small hiatal hernia.
- Oozing gastric ulcer with a visible vessel. Treated
with bipolar cautery.
- Normal examined duodenum.
- No specimens collected.
Discharge Plan
-
Patient Disposition: Home (Routine Discharge)
Discharge Diagnosis/Procedures: Obstructive uropathy
E. coli bacteremia with septic shock
Lactic acidosis
Bleeding gastric ulcer
Acute kidney injury
Type 2 diabetes mellitus
Essential hypertension
Hyperlipidemia
Iron deficiency anemia
Thrombocytopenia
Metabolic dysfunction-associated fatty liver disease
Diverticulosis
Condition: Good
Diet: Low Cholesterol and Diabetic, Carb Controlled
Activity: As tolerated
Driving Restrictions: As prior to admission
Bathing Restrictions: None
Blood Work: CBC, BMP in 1 week
Others Tests: FibroScan as outpatient. Repeat endoscopy as outpatient. Follow-up with GI. Colonoscopy as outpatient
Referrals:
Leslye Lynn PA-C [Family Provider] - in less than 1 week
Rose Aviles MD [Active] - (follow up with GI for anemia and noted fatty liver on CT. call [phone] to schedule)
Randy Mercer Jr., MD [Active] - in one to two weeks
Additional Discharge Medication Instructions: Take cefdinir 300 mg by mouth twice daily until 07/21/2024.
Take pantoprazole 40 mg by mouth twice daily for 1 month, then starts 40 mg once daily.
Take iron tablets by mouth once daily
Hold Jardiance until after your renal stent procedure
Prescriptions:
New
pantoprazole 40 mg tablet,delayed release (DR/EC)
40 mg PO BID Qty: 90 0RF
cefdinir 300 mg Capsule
300 mg PO Q12 Qty: 19 0RF
potassium chloride [Klor-Con 10] 10 mEq tablet extended release
20 meq PO DAILY Qty: 4 0RF
Continued
lisinopril 2.5 mg Tablet
2.5 mg PO DAILY
rosuvastatin 5 mg Tablet
5 mg PO QPM
Jardiance 10 mg Tablet
10 mg PO DAILY
metformin 500 mg tablet extended release 24 hr
1,000 mg PO BID
Discharge Orders:
Discharge Patient (As Directed); Ordered 07/12/24
Ordered By: Ean Rg
Discharge Date and Time
Discharge Date/Time: 07/12/24 16:06
Print Language: ECUADOREAN

Documented by User: Ronnie Najera MD 07/13/24 16:22
Discharge Summary
Discharge Data
Date of Admission: 07/06/24
Date of Discharge: 07/13/24
Discharge Plan
-
Patient Disposition: Home (Routine Discharge)
Discharge Diagnosis/Procedures: Obstructive uropathy
E. coli bacteremia with septic shock
Lactic acidosis
Bleeding gastric ulcer
Acute kidney injury
Type 2 diabetes mellitus
Essential hypertension
Hyperlipidemia
Iron deficiency anemia
Thrombocytopenia
Metabolic dysfunction-associated fatty liver disease
Diverticulosis
Condition: Good
Diet: Low Cholesterol and Diabetic, Carb Controlled
Activity: As tolerated
Driving Restrictions: As prior to admission
Bathing Restrictions: None
Blood Work: CBC, BMP in 1 week
Others Tests: FibroScan as outpatient. Repeat endoscopy as outpatient. Follow-up with GI. Colonoscopy as outpatient
Referrals:
Leslye Lynn PA-C [Family Provider] - in less than 1 week
Rose Aviles MD [Active] - (follow up with GI for anemia and noted fatty liver on CT. call [phone] to schedule)
Randy Mercer Jr., MD [Active] - in one to two weeks
Additional Discharge Medication Instructions: Take cefdinir 300 mg by mouth twice daily until 07/21/2024.
Take pantoprazole 40 mg by mouth twice daily for 1 month, then starts 40 mg once daily.
Take iron tablets by mouth once daily
Hold Jardiance until after your renal stent procedure
Prescriptions:
New
pantoprazole 40 mg tablet,delayed release (DR/EC)
40 mg PO BID Qty: 90 0RF
cefdinir 300 mg Capsule
300 mg PO Q12 Qty: 19 0RF
potassium chloride [Klor-Con 10] 10 mEq tablet extended release
20 meq PO DAILY Qty: 4 0RF
Continued
lisinopril 2.5 mg Tablet
2.5 mg PO DAILY
rosuvastatin 5 mg Tablet
5 mg PO QPM
Jardiance 10 mg Tablet
10 mg PO DAILY
metformin 500 mg tablet extended release 24 hr
1,000 mg PO BID
Discharge Orders:
Discharge Patient (As Directed); Ordered 07/12/24
Ordered By: Ean Rg
Discharge Date and Time
Discharge Date/Time: 07/12/24 16:06
Print Language: ECUADOREAN
[2024-07-11 07:46] LABS: Hematocrit 24.5 % (37.0-47.0); Hemoglobin 8.1 g/dL (12.0-16.0); Mean Corp Hgb Conc. 33.1 g/dL (33.0-37.0); Mean Corpuscular Hgb 26.9 pg (27.0-31.0); Mean Corpuscular Volume 81.4 fL (81.0-99.0); Mean Platelet Volume 10.4 fL (7.4-10.4); Platelet Count 138 10^3/uL (130-400); Red Blood Cell Count 3.01 10^6/uL (4.20-5.40); Red Cell Dist. Width 13.5 % (11.5-14.5); White Blood Cell Count 8.9 10^3/uL (4.8-10.8)
[2024-07-11] MEDS: Pyridium 100 MG PO ×4 (08:27→23:37)
[2024-07-11] MEDS: ZESTRIL 2.5 MG PO (08:27)
[2024-07-11] MEDS: SODIUM BICARBONATE 650 MG PO ×2 (08:27→16:19)
[2024-07-11] MEDS: FLORASTOR 250 MG PO (08:28)
[2024-07-11 08:48] LABS: Glucose - Point of Care 134 mg/dl (70-99)
[2024-07-11] MEDS: NOVOLOG FLEXPEN-LOW RESISTANCE SC ×2 (08:50→12:50)
[2024-07-11 08:56] LABS: Blood Urea Nitrogen 6 mg/dl (7-17); Calcium 8.3 mg/dl (8.4-10.2); Carbon Dioxide 23 mmol/L (22-30); Chloride 107 mmol/L (98-107); Estimated Creatinine Clearance 99 ml/min; Glucose 145 mg/dl (70-99); Potassium 3.3 mmol/L (3.5-5.1); Sodium 137 mmol/L (135-145); eGFR > 60.00
[2024-07-11 09:13] LABS: Hematocrit 24.6 % (37.0-47.0); Hemoglobin 8.2 g/dL (12.0-16.0)
--- NOTE | 2024-07-11 09:16 | W.PN.URO.CBU ---
Today's Communication / Plan
-
discharge
Assessment / Plan
-
stone
UTI
gram neg sepsis- ECOLI
s/p stent and soriano
home today with antibx per ID
outpt f/u
reviewed urologic discharge plan with patient
Diagnosis
-
Date of Service: July 11, 2024
-
Patient Urologic Diagnosis:
stone
UTI and sepsis- ECOLI
Post Op Day:
left ureteral stent 07/06
Subjective
-
pt feels better
ready for discharge
Objective
-
Vital Signs
Temp Pulse Resp BP Pulse Ox
97.9 F 68 18 138/80 96
07/11/24 07:35 07/11/24 08:27 07/11/24 07:35 07/11/24 08:27 07/11/24 07:35
Intake and Output
07/10/24 07/11/24 07/12/24
06:59 06:59 06:59
Intake Total 1240 / 1240 590 / 590
Balance 1240 / 1240 590 / 590
Intake:
Oral fluids 240 / 240 480 / 480
IV fluids (Total) 1000 / 1000
IV piggybacks 110 / 110
Other:
Number of approximated MODERATE 3 2
amounts of urine
Number of approximated LARGE 2
amounts of urine
Number of unmeasured liquid
stools
Rectum 2 3
Laboratory Results
07/11/24 09:01
07/11/24 06:51
Physical Exam
-
General - no acute distress
[2024-07-11 09:21] LABS: Absolute Neutrophils -Man Diff 6.5 10^3/uL (1.4-6.5); Anisocytosis 1+; Band Neutrophils 2 % (0-3); Eosinophils 2 % (0-6); Lymphocytes 18 % (20-51); Microcytosis 1+; Monocytes 6 % (2-9); Segmented Neutrophils 72 % (42-75)
[2024-07-11 09:22] LABS: Macrocytosis 1+; Ovalocytes 1+; Platelets Checked Yes
[2024-07-11 09:34] LABS: % Basophils 0.3 % (0-2); % Eosinophils 0.8 % (0-6); % Immature Granulocytes 5.9 % (0-0.5); % Monocytes 8.1 % (1.7-9.3); % Neutrophils 71.9 % (42.2-75.2); Absolute Eosinophils 0.1 10^3/uL (0-0.7); Absolute Immature Granulocytes 0.5 10^3/uL (0-0.05); Absolute Lymphocytes 1.2 10^3/uL (1.2-3.4); Absolute Monocytes 0.7 10^3/uL (0.1-0.6); Absolute Neutrophils 6.4 10^3/uL (1.4-6.5); Nucleated Red Blood Cells % 0 %
[2024-07-11 10:53] LABS: Total Cells Counted 100
[2024-07-11 11:03] VITALS: BP 158/86
[2024-07-11] MEDS: KCL 260 MEQ IV (11:25)
--- NOTE | 2024-07-11 11:31 | W.PN.GI.CBS2 ---
Today's Communication / Plan
-
monitor hb closely and for signs of rebleeding
adv diet
Assessment / Plan
-
Pt is a 54yo with hx NIDDM, HTN, hyperlipidemia, headaches, basal cell CA with prior mohs surgery, TKR with admission 07/06 with left sided back and flank pain on admission concern for sepsis with noted noted obstructing ureteral calculus and
pyelonephritis. Pt has been seen by urology and completed cysto with ureteral stent. Pt also noted with Ecoli UTI and bacteremia with ID evaluation. She is noted with coffee ground emesis, dark heme + stools drop in hbg initially 13.7 on admission
then down to 8.7 with BUN 20-30 range. Pt admits to daily NSAIDs prior to admission for hip pain. She also admits to increased GERD which is new and dizziness over last day. She admits to some vomiting prior to admission but denies dysphagia,
abdominal pain, or blood in stools. No hx EGD or colonoscopy in past.
07/06/24 CT Abdomen and Pelvis without IV Contrast
1. SEVERE ACUTE OBSTRUCTIVE UROPATHY of the LEFT KIDNEY with a 1.0 cm obstructing calculus in the left mid ureter. Severe left renal and perirenal edema/inflammation, moderate urothelial thickening, and mild air in the left renal pelvis consistent
with SEVERE ACUTE LEFT PYELONEPHRITIS and ACUTE EMPHYSEMATOUS PYELITIS.
2. Severe diffuse hepatic steatosis.
3. Mild hepatosplenomegaly.
4. Small hiatal hernia.
5. Mild diverticulosis in the sigmoid colon.
6. Grade 1 anterolisthesis of L4 on L5 secondary to severe facet joint arthrosis.
7. Severe asymmetric osteoarthritis in the left hip.
-coffee ground emesis
-diarrhea
-anemia with progressive drop after admission with iron deficiency.
-daily NSAID use for chronic hip pain
-admit to ecoli UTI/bacteremia/pyelo s/p cysto with stent placement
-small HH per CT
-severe diffuse hepatic steatosis per CT
other med problems:
-NIDDM
-HTN
-hyperlipidemia
-basal cell CA
-hx Mohs surgery
PLAN:
EGD 07/09 -bleeding gastric ulcer status post cautery
She did have a slight drop in hemoglobin today and had a few bowel movements yesterday with blood but none since overnight could have been old residual blood.
If she does have further episodes today will repeat endoscopy
Will advance diet and if she has no further bleeding possible DC in a.m.
Most likely was related to NSAID use
Avoid NSAIDs
can DC PPI gtt, continue twice daily for 1 month and then daily
Repeat endoscopy in 3 months to check for healing along with screening colonoscopy
cont rx for pyelo
OP follow up for fatty liver
CT shows mild hepatosplenomegaly and fatty liver possible MAFLD(no ETOH use), normal LFTS, will need workup as outpatient and FIBROSCAN
Subjective
Subjective
Date of Service: July 11, 2024
She had a few episodes of bowel movements with blood in it yesterday but none since last night. Hemoglobin dropped slightly but stable today on repeat. No abdominal pain.
Objective
Data Reviewed
Laboratory Data:
Laboratory Results
07/11/24 09:01
07/11/24 06:51
Laboratory Results
PT 15.4 Sec (11.4-14.6) H 07/08/24 16:38
INR 1.18 07/08/24 16:38
APTT 41.6 Sec (23.4-35.0) H 07/08/24 16:38
Magnesium 1.8 mg/dl (1.6-2.3) 07/10/24 03:59
Total Bilirubin 1.3 mg/dl (0.2-1.3) 07/06/24 12:13
AST 26 U/L (14-36) 07/06/24 12:13
ALT 23 U/L (0-35) 07/06/24 12:13
Alkaline Phosphatase 122 U/L (38-126) 07/06/24 12:13
Vital Signs and I&O:
Vital Signs
Temp Pulse Resp BP Pulse Ox
98.2 F 68 18 158/86 98
07/11/24 11:03 07/11/24 11:03 07/11/24 11:03 07/11/24 11:03 07/11/24 11:03
I&O
07/10/24 07/11/24 07/12/24
06:59 06:59 06:59
Intake Total 1240 / 1240 590 / 590
Balance 1240 / 1240 590 / 590
Physical Exam
Physical Exam
Cardiology: Normal Sinus Rhythm
Pulmonary: Clear
GI: Soft, Non Distended, Non Tender and Normal Bowel Sounds
[2024-07-11] MEDS: STERILE WATER FOR INJECTION 20 ML IV (12:04)
[2024-07-11 12:05] LABS: Normal RBC Morphology No
[2024-07-11] MEDS: ROCEPHIN 2000 MG IV (12:05)
--- NOTE | 2024-07-11 12:24 | CM ---
Patient seen bedside.
Per patient anticipated d/c home today, has transportation.
Plan: home no needs anticipated.
[2024-07-11 12:40] LABS: Glucose - Point of Care 126 mg/dl (70-99)
[2024-07-11] MEDS: FERRLECIT 110 MG IV (15:04)
[2024-07-11 15:35] VITALS: BP 143/86
[2024-07-11 16:22] LABS: Glucose - Point of Care 203 mg/dl (70-99)
[2024-07-11] MEDS: NOVOLOG FLEXPEN-LOW RESISTANCE 2 UNITS SC (16:25)
--- NOTE | 2024-07-11 17:15 | W.PN.ID1 ---
Date of Service
Date of Service: July 11, 2024
Today's Communication
Continue antibiotics. Transition to cefdinir. See below�
Assessment / Plan
Obstructive uropathy
Clinical sepsis
Bacteremia with E. coli
Complicated urinary tract infection / Pyelonephritis with E. coli
Nausea / vomiting / diarrhea
- resolved
- Norovirus & C. diff testing negative
Fever
Leukocytosis
Lactic acidosis; improved
NIDDM
HTN
Dyslipidemia
Recommendations:
Transition to oral cefdinir; to continue through 07/21/24
Monitor white count and temperature curve.
Given GI bleed with altered mucosa and potential portal of entry, I have some concern about giving probiotics. Will hold for now.
Outpatient follow-up with Urology regarding definitive stone treatment.
Chief Complaint
-: UTI and Bacteremia
Subjective / Review of Systems
Review of Systems: No Fever and No Chills
Vital Signs / Physical Exam
Vital Signs
Vital Signs
Temp Pulse Resp BP Pulse Ox
99.3 F 87 16 143/86 98
07/11/24 15:35 07/11/24 15:35 07/11/24 15:35 07/11/24 15:35 07/11/24 15:35
Physical Exam
Constitutional: No Acute Distress, Comfortable and Non-toxic
Eyes: Sclera Anicteric
Cardiovascular: S1/S2; Negative S3/S4
Pulmonary: Non Labored
Gastrointestinal: Soft, Non Tender, Non Distended and Normal Bowel Sounds
Genito-Urinary: CVA Tenderness (Minimal)
Extremities: Negative Edema or Cyanosis
Neurological: Awake, Alert and Oriented
Psychological: Calm
Objective Data
Lab Data
Lab Results
07/11/24 09:01
07/11/24 06:51
PT 15.4 Sec (11.4-14.6) H 07/08/24 16:38
INR 1.18 07/08/24 16:38
APTT 41.6 Sec (23.4-35.0) H 07/08/24 16:38
Estimated Creat Clear 99 ml/min 07/11/24 06:51
Lactic Acid 1.7 mmol/L (0.7-2.0) 07/07/24 05:43
Total Bilirubin 1.3 mg/dl (0.2-1.3) 07/06/24 12:13
AST 26 U/L (14-36) 07/06/24 12:13
ALT 23 U/L (0-35) 07/06/24 12:13
Alkaline Phosphatase 122 U/L (38-126) 07/06/24 12:13
Most recent labs reviewed.
Micro Results:
07/07/24 12:18 Blood Culture - Preliminary
Blood/Venous No Growth in 4 days- Final report to follow
07/08/24 11:24 Blood Culture - Preliminary
Blood/Venous No Growth in 72 hours- Final report to follow
07/08/24 04:34 Blood Culture - Preliminary
Blood/Venous No Growth in 72 hours- Final report to follow
07/09/24 08:45 - Final
Feces/Stool Negative for Norovirus GI and GII.
07/09/24 08:45 C. difficile GDH Antigen & Toxins - Final
Feces/Stool Negative for toxigenic C.difficile
07/06/24 14:55 Blood Culture - Final
Blood/Venous Escherichia coli
Gram Stain - Final
07/06/24 14:55 Blood Culture - Final
Blood/Venous Escherichia coli
Gram Stain - Final
07/06/24 13:24 Urine Culture - Final
Urine Escherichia coli
Urine Culture Final 07/06/24
CC: Greater than 100,000 CFU/ML Escherichia coli
Organism 1 Escherichia coli
1. Escherichia coli
M.I.C. RX
--------- ---
Amoxicillin/Potas. Clavulanate >16/8 R
Ampicillin >16 R
Ampicillin/Sulbactam >16/8 R
Aztreonam <=4 S
Cefazolin >16 R
Cefepime <=2 S
Ceftazidime <=1 S
Ceftriaxone <=1 S
Ertapenem <=0.5 S
Ciprofloxacin <=0.25 S
Gentamicin <=2 S
Meropenem <=1 S
Nitrofurantoin-Urine Only <=32 S
Piperacillin/Tazobactam <=8 S
Tetracycline <=4 S
Tobramycin <=2 S
Trimethoprim/Sulfamethoxazole <=2/38 S
Imaging:
07/06/2024 CT abdomen/pelvis w/o contrast: severe acute obstructive uropathy of the left kidney with a 1 cm obstructing calculus in the left mid ureter. Severe left renal and perirenal edema/inflammation, with moderate urothelial thickening and mild
air in the left renal pelvis consistent with acute left pyelonephritis and emphysematous pyelitis. Also noted is severe diffuse hepatic steatosis with mild hepatosplenomegaly and a small hiatal hernia. Please see full dictation for additional
detail. Film personally viewed.
[2024-07-11] MEDS: CRESTOR 5 MG PO ×2 (18:13→18:15)
--- NOTE | 2024-07-11 18:47 | W.PN.UPDATE ---
Update Note
Progress Note Update
No further bowel movements since yesterday and no further rectal bleeding or melena. Okay to DC home in a.m. from GI perspective if hemoglobin remained stable. GI will sign off and will be available as needed. Follow-up as outpatient for repeat
endoscopy and colonoscopy in 3 months
[2024-07-11 19:38] VITALS: BP 124/78
[2024-07-11] MEDS: OMNICEF 300 MG PO (20:50)
[2024-07-11] MEDS: PROTONIX 40 MG PO (20:50)
[2024-07-11 22:11] LABS: Glucose - Point of Care 198 mg/dl (70-99)
[2024-07-11] MEDS: ZOFRAN 4 MG IV (22:28)
[2024-07-11 23:00] VITALS: BP 143/83
[2024-07-12 03:33] VITALS: BP 122/67
[2024-07-12 07:00] VITALS: BP 135/63
[2024-07-12 08:11] LABS: Glucose - Point of Care 151 mg/dl (70-99)
[2024-07-12 08:23] LABS: Hematocrit 25.4 % (37.0-47.0); Hemoglobin 8.4 g/dL (12.0-16.0); Mean Corp Hgb Conc. 33.1 g/dL (33.0-37.0); Mean Corpuscular Volume 81.7 fL (81.0-99.0); Mean Platelet Volume 10.1 fL (7.4-10.4); Platelet Count 181 10^3/uL (130-400); Red Blood Cell Count 3.11 10^6/uL (4.20-5.40); Red Cell Dist. Width 13.5 % (11.5-14.5); White Blood Cell Count 8.1 10^3/uL (4.8-10.8)
[2024-07-12 08:36] LABS: Blood Urea Nitrogen 4 mg/dl (7-17); Calcium 8.4 mg/dl (8.4-10.2); Carbon Dioxide 27 mmol/L (22-30); Chloride 104 mmol/L (98-107); Estimated Creatinine Clearance 115 ml/min; Glucose 139 mg/dl (70-99); Potassium 3.3 mmol/L (3.5-5.1); Sodium 138 mmol/L (135-145); eGFR > 60.00
--- NOTE | 2024-07-12 08:54 | W.PN.HOSP.TC ---
Addendum entered and electronically signed by Ronnie Najera MD 07/12/24 14:24:
I saw and evaluated the patient. I reviewed the resident�s note and agree with findings and plan as documented in the resident�s note.
Seen earlier today. Patient's was at bedside.
She denied any complaints and anxious to go home.
Cardiovascular system S1-S2 appreciated
Chest clear to auscultation
Abdomen soft and nontender
No further bleeding hemoglobin is stable since yesterday
Protonix twice daily for 1 month then daily
Will give 1 more dose of IV iron prior to discharge today
Patient is aware that she needs a repeat endoscopy as outpatient and also FibroScan as outpatient.
She is also aware that she needs a colonoscopy as outpatient
She should follow-up with Dr. Mercer for stent procedure
All follow-up care discussed
Discussed with nursing
Discussed with at bedside
More than 30 minutes spent in discharge including
Final examination of the patient
Summarizing hospital stay
Instructions for continuing care to all relevant caregivers
Preparation of discharge records, prescriptions, and referral forms
Total time spent (in minutes): 36 min
Original Note:
Today's Communication/Plan
-
IV iron
Replete potassium
Check CBC/BMP in 1 week
Discharge planning
Assessment / Plan
Assessment / Plan
Patient is a 54-year-old female with past medical history significant for NIDDM, hypertension, and hyperlipidemia who presented to [facility] ED for evaluation of left back and left flank pain found to have 1.0cm obstructing calculus
resulting in obstructive uropathy; pyelonephritis and acute emphysematous pyelitis s/p urgent placement ureteral stent.
Assessment/plan:
#Bleeding gastric ulcer with resultant ZACK-from NSAID use, s/p cautery 07/09.
-No further melena, rectal bleeding. Patient tolerating diet.
-Continue pantoprazole 40 mg BID for 1 month and then once daily.
-Avoid NSAIDs.
-Appreciate GI.
-IV iron supplementation today.
-Continue oral OTC iron supplements.
-Outpatient follow-up repeat upper endoscopy and colonoscopy in 3 months.
-Outpatient follow-up for metabolic dysfunction associated fatty liver disease for workup with FibroScan.
-Check CBC in 1 week.
#Septic shock 2/2 obstructive uropathy with left ureteral calculus, pyelonephritis, acute emphysematous pyelitis.
#Complicated UTI with E. coli bacteremia
-S/p cystoscopy with left ureteral stent 07/06/2024.
-Leukocytosis resolved, patient hemodynamically stable.
-S/p uneventful cystoscopy with left ureteral stent 07/06 (Dr. Mercer).
-Continue oral cefdinir and continue until 07/21/2024 per ID.
-Follow-up blood cultures x 2 NGTD.
-Outpatient urology follow-up for definitive stone treatment.
-Appreciate ID.
#Acute diarrhea
-Resolved.
-Suspect resolving ileus vs acute GI infection.
-Stool studies negative for norovirus, C. difficile.
-Outpatient colonoscopy when current pyelo and diarrhea resolves.
#Hypokalemia
-Replete.
-Check BMP in 1 week.
#Lactic acidosis
-Resolved.
#[place]
-Resolved.
#NIDDM
-A1c 7.3
-Hold home Jardiance, metformin.
-Low ISS with Accu-Cheks.
#HLD
-Continue rosuvastatin.
#Essential HTN
-Hold lisinopril.
#Non-anion gap metabolic acidosis
-Suspect bicarb GI losses.
-Follow BMP.
DVT PPx-SCD
CODE STATUS: FULL CODE
Data:
Abdomen/Pelvis CT
1. SEVERE ACUTE OBSTRUCTIVE UROPATHY of the LEFT KIDNEY with a 1.0 cm obstructing calculus in the left mid ureter. Severe left renal and perirenal edema/inflammation, moderate urothelial thickening, and mild air in the left renal pelvis consistent
with SEVERE ACUTE LEFT PYELONEPHRITIS and ACUTE EMPHYSEMATOUS PYELITIS.
2. Severe diffuse hepatic steatosis.
07/09. Mild hepatosplenomegaly.
4. Small hiatal hernia.
5. Mild diverticulosis in the sigmoid colon.
6. Grade 1 anterolisthesis of L4 on L5 secondary to severe facet joint arthrosis.
7. Severe asymmetric osteoarthritis in the left hip.
Endoscopy 07/09/2024:
- Normal esophagus.
- Small hiatal hernia.
- Oozing gastric ulcer with a visible vessel. Treated
with bipolar cautery.
- Normal examined duodenum.
- No specimens collected.
Abdominal x-ray 07/06/2024:
Left double-J ureteral stent in normal position.
Anticipated Discharge: Today
Subjective/Interval History
-
Date of Service: July 12, 2024
Evaluated patient. Patient sitting comfortably in bed in no acute distress. Reports that she had bowel movement yesterday, no blood. She denies weakness, fatigue, chest pain, shortness of breath, abdominal pain, fever, nausea or vomiting.
Objective Data
-
Labs:
Laboratory Results
07/12/24
06:43
WBC 8.1
Hgb 8.4 L
Hct 25.4 L
Plt Count 181 D
Sodium 138
Potassium 3.3 L
Chloride 104
Carbon Dioxide 27
BUN 4 L
Creatinine 0.6
Glucose 139 H
Calcium 8.4
Vital Signs:
Vital Signs
Temp Pulse Resp BP Pulse Ox
98.4 F 60 18 122/67 96
07/12/24 03:33 07/12/24 03:33 07/12/24 03:33 07/12/24 03:33 07/12/24 03:33
I&O
07/11/24 07/12/24 07/13/24
06:59 06:59 06:59
Intake Total 590 / 590 1440 / 1440
Balance 590 / 590 1440 / 1440
Review of Systems
-
History Source: Patient
All other systems: Not reviewed unless documented
Constitutional: Denies Fever or Chills
Respiratory: Reports No Symptoms; Denies Trouble Breathing or Wheezing
Cardiac: Reports No Symptoms; Denies Palpitations
Abdomen/GI: Reports No Symptoms; Denies Abdominal Pain, Nausea, Vomiting, Bloody Stools or Black Stools
Genitourinary: Reports No Symptoms; Denies Dysuria or Frequency
Musculoskeletal: Reports No Symptoms
Skin: Reports No Symptoms
Neuro: Reports No Symptoms
Physical Exam
-
General: No Apparent Distress and Comfortable
HEENT: Normocephalic and Anicteric
Respiratory: Clear to Auscultation and Non Labored Respirations; Negative Wheezes
Cardiac: Regular Rhythm and S1/S2
GI: Soft and Nontender
Musculoskeletal: No Cyanosis and No Edema; Negative Clubbing
Skin: Warm and Dry; Negative Rash
Neuro: Awake and AO x 3
Psych: Calm
Data Reviewed
-
Labs: Labs Reviewed by me, Discussed with Physician and Discussed with Patient
Old Records: Reviewed
[2024-07-12] MEDS: PROTONIX 40 MG PO (09:55)
[2024-07-12] MEDS: OMNICEF 300 MG PO (09:55)
[2024-07-12] MEDS: ZESTRIL 2.5 MG PO (09:55)
[2024-07-12] MEDS: NOVOLOG FLEXPEN-LOW RESISTANCE 1 UNITS SC (09:55)
[2024-07-12] MEDS: Pyridium 100 MG PO (09:56)
[2024-07-12] MEDS: KCL ELIXIR 40 MEQ PO (09:57)
[2024-07-12] MEDS: FLUSH (NSS) 1 FLUSH IV (09:58)
[2024-07-12 10:46] LABS: % Basophils 0.5 % (0-2); % Eosinophils 0.9 % (0-6); % Immature Granulocytes 7.4 % (0-0.5); % Lymphocytes 14.4 % (20.5-51.1); % Monocytes 8.5 % (1.7-9.3); % Neutrophils 68.3 % (42.2-75.2); Absolute Eosinophils 0.1 10^3/uL (0-0.7); Absolute Immature Granulocytes 0.6 10^3/uL (0-0.05); Absolute Lymphocytes 1.2 10^3/uL (1.2-3.4); Absolute Monocytes 0.7 10^3/uL (0.1-0.6); Absolute Neutrophils 5.5 10^3/uL (1.4-6.5); Nucleated Red Blood Cells % 0.4 %
--- NOTE | 2024-07-12 10:59 | CM ---
Patient seen at bedside with
States has family support at home
IMM n/a
PLAN: Home, no needs
to transport
[2024-07-12 11:55] VITALS: BP 142/76
[2024-07-12 12:18] LABS: Glucose - Point of Care 224 mg/dl (70-99)
[2024-07-12] MEDS: NOVOLOG FLEXPEN-LOW RESISTANCE 2 UNITS SC (12:43)
[2024-07-12] MEDS: FLUSH (NSS) 2 FLUSH IV (13:11)
[2024-07-12] MEDS: FERRLECIT 110 MG IV (13:11)
--- NOTE | 2024-07-12 15:34 | W.PN.ID1 ---
Date of Service
Date of Service: July 12, 2024
Today's Communication
Continue antibiotics.
Assessment / Plan
Obstructive uropathy
Clinical sepsis
Bacteremia with E. coli
Complicated urinary tract infection / Pyelonephritis with E. coli
Nausea / vomiting / diarrhea
- resolved
- Norovirus & C. diff testing negative
Fever
Leukocytosis
Lactic acidosis; improved
NIDDM
HTN
Dyslipidemia
Recommendations:
Continue oral cefdinir through 07/21/24
Given GI bleed with altered mucosa and potential portal of entry would avoid probiotics.
Outpatient follow-up with Urology regarding definitive stone treatment.
Chief Complaint
-: UTI and Bacteremia
Subjective / Review of Systems
Review of Systems: No Fever, No Chills and No Dysuria
Vital Signs / Physical Exam
Vital Signs
Vital Signs
Temp Pulse Resp BP Pulse Ox
99 F 68 18 142/76 98
07/12/24 11:55 07/12/24 11:55 07/12/24 11:55 07/12/24 11:55 07/12/24 11:55
Physical Exam
Constitutional: No Acute Distress, Comfortable and Non-toxic
Eyes: Sclera Anicteric
Cardiovascular: S1/S2; Negative S3/S4
Pulmonary: Non Labored
Gastrointestinal: Soft, Non Tender, Non Distended and Normal Bowel Sounds
Genito-Urinary: Negative CVA Tenderness
Extremities: Negative Edema or Cyanosis
Neurological: Awake, Alert and Oriented
Psychological: Calm
Objective Data
Lab Data
Lab Results
07/12/24 06:43
07/12/24 06:43
PT 15.4 Sec (11.4-14.6) H 07/08/24 16:38
INR 1.18 07/08/24 16:38
APTT 41.6 Sec (23.4-35.0) H 07/08/24 16:38
Estimated Creat Clear 115 ml/min 07/12/24 06:43
Lactic Acid 1.7 mmol/L (0.7-2.0) 07/07/24 05:43
Total Bilirubin 1.3 mg/dl (0.2-1.3) 07/06/24 12:13
AST 26 U/L (14-36) 07/06/24 12:13
ALT 23 U/L (0-35) 07/06/24 12:13
Alkaline Phosphatase 122 U/L (38-126) 07/06/24 12:13
Most recent labs reviewed.
Micro Results:
07/07/24 12:18 Blood Culture - Final
Blood/Venous No Growth - Final Report
07/08/24 11:24 Blood Culture - Preliminary
Blood/Venous No Growth in 4 days- Final report to follow
07/08/24 04:34 Blood Culture - Preliminary
Blood/Venous No Growth in 4 days- Final report to follow
07/09/24 08:45 - Final
Feces/Stool Negative for Norovirus GI and GII.
07/09/24 08:45 C. difficile GDH Antigen & Toxins - Final
Feces/Stool Negative for toxigenic C.difficile
07/06/24 14:55 Blood Culture - Final
Blood/Venous Escherichia coli
Gram Stain - Final
07/06/24 14:55 Blood Culture - Final
Blood/Venous Escherichia coli
Gram Stain - Final
07/06/24 13:24 Urine Culture - Final
Urine Escherichia coli
Urine Culture Final 07/06/24
CC: Greater than 100,000 CFU/ML Escherichia coli
Organism 1 Escherichia coli
1. Escherichia coli
M.I.C. RX
--------- ---
Amoxicillin/Potas. Clavulanate >16/8 R
Ampicillin >16 R
Ampicillin/Sulbactam >16/8 R
Aztreonam <=4 S
Cefazolin >16 R
Cefepime <=2 S
Ceftazidime <=1 S
Ceftriaxone <=1 S
Ertapenem <=0.5 S
Ciprofloxacin <=0.25 S
Gentamicin <=2 S
Meropenem <=1 S
Nitrofurantoin-Urine Only <=32 S
Piperacillin/Tazobactam <=8 S
Tetracycline <=4 S
Tobramycin <=2 S
Trimethoprim/Sulfamethoxazole <=2/38 S
Imaging:
07/06/2024 CT abdomen/pelvis w/o contrast: severe acute obstructive uropathy of the left kidney with a 1 cm obstructing calculus in the left mid ureter. Severe left renal and perirenal edema/inflammation, with moderate urothelial thickening and mild
air in the left renal pelvis consistent with acute left pyelonephritis and emphysematous pyelitis. Also noted is severe diffuse hepatic steatosis with mild hepatosplenomegaly and a small hiatal hernia. Please see full dictation for additional
detail. Film personally viewed.
Care Review
Plan reviewed with: Physician (Hospitalist)
== END 2024-07-12 16:06 | disposition home or self-care (01) | DRG 853 ==
LOC: 4 EAST ACU 15:39
PROVIDERS: Nurse Practitioner Family; Student in an Organized Health Care Education/Training Program; ADMITTING PHYSICIAN Hospitalist; ATTENDING PHYSICIAN Hospitalist; CONSULT PHYSICIAN Internal Medicine Gastroenterology; CONSULT PHYSICIAN Internal Medicine Infectious Disease; CONSULT PHYSICIAN Specialist; EMERGENCY PHYSICIAN Emergency Medicine; FAMILY PHYSICIAN Physician Assistant Medical
PROC: 0T778DZ Dilation of Left Ureter with Intraluminal Device, Via Natural or Artificial Opening Endoscopic (ICD-10-PCS; 2024-07-06)
PROC: 0W3P8ZZ Control Bleeding in Gastrointestinal Tract, Via Natural or Artificial Opening Endoscopic (ICD-10-PCS; 2024-07-09)
DX: A41.51 Sepsis due to Escherichia coli [E. coli] (principal); K25.4 Chronic or unspecified gastric ulcer with hemorrhage; R65.21 Severe sepsis with septic shock; N20.1 Calculus of ureter; E87.20 Acidosis, unspecified; N17.9 Acute kidney failure, unspecified; D62 Acute posthemorrhagic anemia; N10 Acute pyelonephritis; N13.9 Obstructive and reflux uropathy, unspecified; E11.9 Type 2 diabetes mellitus without complications; I10 Essential (primary) hypertension; E78.00 Pure hypercholesterolemia, unspecified; D69.6 Thrombocytopenia, unspecified; K57.30 Diverticulosis of large intestine without perforation or abscess without bleeding; K44.9 Diaphragmatic hernia without obstruction or gangrene; Z79.84 Long term (current) use of oral hypoglycemic drugs
CPT/HCPCS: 51701; 74018; 74176; 76000; 80048; 80053; 81003; 81015; 82607; 82728; 82962; 83036; 83540; 83550; 83605; 83735; 85014; 85018; 85025; 85027; 85610; 85730; 87040; 87071; 87086; 87149; 87186; 87205; 87324; 87449; 87798; 96361; 96365; 96375; 99285; C2617; J1580; J2916

== ENCOUNTER 2024-08-02 06:08 | Day surgery (SDC) | payer OTHER, SELFPAY ==
--- NOTE | 2024-07-30 13:09 | PTCARENOTE ---
Patients 07/12 Hgb- 8.4; potassium 3.3- reviwed by Dr. Rivers- no additional interventions required
[2024-08-02] VITALS (7 sets, daily range): BP systolic 121–144; BP diastolic 77–91; BMI 28.0
[2024-08-02 07:42] LABS: Glucose - Point of Care 189 mg/dl (70-99)
[2024-08-02] MEDS: NORMOSOL-R/PLASMALYTE-A 1000 IV (07:46)
[2024-08-02 09:24] LABS: Glucose - Point of Care 192 mg/dl (70-99)
[2024-08-02] MEDS: Pyridium 200 MG PO (10:01)
[2024-08-05 18:04] LABS: Stone Analysis Mass 24 mg
== END 2024-08-02 10:50 | disposition home or self-care (01) ==
LOC: SDS 06:08
PROVIDERS: ATTENDING PHYSICIAN Specialist
DX: N20.0 Calculus of kidney (principal)
CPT/HCPCS: 52356; 74018; 76000; 82365; 82962; 93005; C2617

== ENCOUNTER → 2025-01-09 15:26 | Outpatient (REF) | payer OTHER, SELFPAY | LOC: MRI 3T 15:26 | PROVIDERS: ATTENDING PHYSICIAN Anesthesiology; FAMILY PHYSICIAN Physician Assistant Medical | DX: M54.16 Radiculopathy, lumbar region (principal) | CPT/HCPCS: 72148 ==